=== PATIENT | male | born 1955 | race Caucasian/White ===

== ENCOUNTER 2021-01-15 10:30 | Outpatient (RCR) | payer MEDICARE | END 2021-03-04 | disposition home or self-care (01) | PROVIDERS: ATTEND Physician Assistant | DX: M54.2 Cervicalgia (principal) ==

== ENCOUNTER 2022-12-13 11:32 | Inpatient (IN) | payer MEDICARE ==
[~2022-12-13] VITALS: Ht 180.5 cm; Wt 81.6 kg
[2022-12-13 11:59] LABS: BASOPHILS % (AUTO) 0 % (0-10); EOSINOPHILS % (AUTO) 0 % (0-10); HEMATOCRIT 48 % (40-54); HEMOGLOBIN 15.9 g/dL (13.3-17.7); LYMPHOCYTES # (AUTO) 1.3 10^3/uL (1.0-4.0); LYMPHOCYTES % (AUTO) 6 % (12-44); MEAN CORPUSCULAR HEMOGLOBIN 28 pg (25-34); MEAN CORPUSCULAR HGB CONC 34 g/dL (32-36); MEAN CORPUSCULAR VOLUME 85 fL (80-99); MEAN PLATELET VOLUME 8.6 fL (9.0-12.2); MONOCYTES # (AUTO) 1.6 10^3/uL (0.0-1.0); MONOCYTES % (AUTO) 8 % (0-12); NEUTROPHILS # (AUTO) 17.8 10^3/uL (1.8-7.8); NEUTROPHILS % (AUTO) 85 % (42-75); PLATELET COUNT 211 10^3/uL (130-400); WHITE BLOOD COUNT 20.8 10^3/uL (4.3-11.0)
[2022-12-13] MEDS ORDERED: morphine INJ 10 MG/ML 1ML (SYR OR VIAL) IVP STA (12:07)
[2022-12-13] MEDS ORDERED: ONDANSETRON 4 MG/2 ML (SDV) Z0FRAN IVP ONE (12:15)
--- NOTE | 2022-12-13 12:19 | ED GI ---
General Chief Complaint: Abdominal/GI Problems Stated Complaint: ABD PAIN | CONSTIPATION Nursing Triage Note: PT AMB TO ED BY POV WITH C/O CONSTIPATION, N/V, ABD PAIN. PT REPORTS LBM 3-4 DAYS AGO. N/V BEGINNING YESTERDAY. PT REPORTS HE HAS TRIED DUCOLAX, MIRALAX, AND FLEET WITH NO SUCCESS. Source of Information: Patient Exam Limitations: No Limitations History of Present Illness Date Seen by Provider: Dec 13, 2022 Time Seen by Provider: 11:55 Initial Comments History provided by patient. Patient is a 67-year-old male who presents to the emergency department with abdominal pain since yesterday. Patient is also having constipation with his last bowel movement being 3 to 4 days ago. Patient has also been having some nausea and vomiting that began yesterday. He states the pain currently is improved from what it was yesterday and last night. Patient states he only has nausea and vomiting when he tries to eat or drink anything. He was sent to the emergency department from Dr. Chavez's office. Patient denies fever. States he has been urinating more often than normal over the past few days. Denies any pain with urination. Denies any back pain. States the pain is generalized in his abdomen and does not radiate. Denies any trauma to the abdomen recently. No history of abdominal surgeries. Patient denies taking any opioids in the recent past. Allergies and Home Medications Allergies Coded Allergies: No Known Drug Allergies (Unverified , 12/13/22) Patient Home Medication List Home Medication List Reviewed: Yes Review of Systems Review of Systems Constitutional: no symptoms reported EENTM: No Symptoms Reported Respiratory: No Symptoms Reported Cardiovascular: No Symptoms Reported Gastrointestinal: See HPI, Abdominal Pain, Constipated Genitourinary: See HPI Musculoskeletal: no symptoms reported Skin: no symptoms reported Psychiatric/Neurological: No Symptoms Reported Endocrine: No Symptoms Reported Hematologic/Lymphatic: No Symptoms Reported Past Mvyfizw-Maoidn-Wxrawp Hx Patient Social History Tobacco Use?: No Use of E-Cig and/or Vaping dev: No Substance use?: No Alcohol Use?: Yes Alcohol type: Beer Alcohol Frequency: Once in a while Pt feels they are or have been: No Immunizations Up To Date Influenza Vaccine Up-to-Date: No; Not Current First/Initial COVID19 Vaccinat: x3 Second COVID19 Vaccination Anderson: x3 Third COVID19 Vaccination Date: x3 Past Medical History Surgery/Hospitalization HX: HTN, ENLARGED PROSTATE, CARDIAC STENT Physical Exam Vital Signs Vital Signs - First Documented 12/13/22 11:39 Temp 35.1 Pulse 109 Resp 16 B/P (MAP) 97/53 (68) Pulse Ox 96 O2 Delivery Room Air Capillary Refill : Less Than 3 Seconds Height/Weight/BMI Height: '" Weight: lbs. oz. kg; 25.00 BMI Method: General Appearance: WD/WN, no apparent distress HEENT: PERRL/EOMI, normal ENT inspection, TMs normal, pharynx normal Neck: non-tender, full range of motion, supple, normal inspection Respiratory: chest non-tender, lungs clear, normal breath sounds, no respiratory distress, no accessory muscle use Cardiovascular: regular rate, rhythm, no edema, no gallop, no JVD, no murmur Gastrointestinal: normal bowel sounds, soft, tenderness Extremities: normal range of motion, non-tender, normal inspection, no pedal edema, no calf tenderness Neurologic/Psychiatric: no motor/sensory deficits, alert, normal mood/affect, oriented x 3 Skin: normal color, warm/dry Progress/Results/Core Measures Results/Orders Lab Results Laboratory Tests Test 12/13/22 11:49 12/13/22 13:30 Range/Units White Blood Count 20.8 H 4.3-11.0 10^3/uL Red Blood Count 5.62 H 4.30-5.52 10^6/uL Hemoglobin 15.9 13.3-17.7 g/dL Hematocrit 48 40-54 % Mean Corpuscular Volume 85 80-99 fL Mean Corpuscular Hemoglobin 28 25-34 pg Mean Corpuscular Hemoglobin Concent 34 32-36 g/dL Red Cell Distribution Width 14.2 10.0-14.5 % Platelet Count 211 130-400 10^3/uL Mean Platelet Volume 8.6 L 9.0-12.2 fL Immature Granulocyte % (Auto) 1 % Neutrophils (%) (Auto) 85 H 42-75 % Lymphocytes (%) (Auto) 6 L 12-44 % Monocytes (%) (Auto) 8 0-12 % Eosinophils (%) (Auto) 0 0-10 % Basophils (%) (Auto) 0 0-10 % Neutrophils # (Auto) 17.8 H 1.8-7.8 10^3/uL Lymphocytes # (Auto) 1.3 1.0-4.0 10^3/uL Monocytes # (Auto) 1.6 H 0.0-1.0 10^3/uL Eosinophils # (Auto) 0.0 0.0-0.3 10^3/uL Basophils # (Auto) 0.0 0.0-0.1 10^3/uL Immature Granulocyte # (Auto) 0.1 0.0-0.1 10^3/uL Neutrophils % (Manual) 88 % Lymphocytes % (Manual) 6 % Monocytes % (Manual) 6 % Eosinophils % (Manual) 0 % Basophils % (Manual) 0 % Band Neutrophils 0 % Blood Morphology Comment NORMAL Sodium Level 136 135-145 MMOL/L Potassium Level 4.4 3.6-5.0 MMOL/L Chloride Level 101 98-107 MMOL/L Carbon Dioxide Level 23 21-32 MMOL/L Anion Gap 12 5-14 MMOL/L Blood Urea Nitrogen 22 H 7-18 MG/DL Creatinine 1.45 H 0.60-1.30 MG/DL Estimat Glomerular Filtration Rate 52 BUN/Creatinine Ratio 15 Glucose Level 114 H 70-105 MG/DL Calcium Level 9.4 8.5-10.1 MG/DL Corrected Calcium 9.5 8.5-10.1 MG/DL Total Bilirubin 1.7 H 0.1-1.0 MG/DL Aspartate Amino Transf (AST/SGOT) 31 5-34 U/L Alanine Aminotransferase (ALT/SGPT) 35 0-55 U/L Alkaline Phosphatase 55 40-136 U/L Total Protein 7.0 6.4-8.2 GM/DL Albumin 3.9 3.2-4.5 GM/DL Urine Color YELLOW Urine Clarity CLEAR Urine pH 6.5 5-9 Urine Specific [place] <=1.005 1.016-1.022 Urine Protein TRACE H NEGATIVE Urine Glucose (UA) NEGATIVE NEGATIVE Urine Ketones NEGATIVE NEGATIVE Urine Nitrite NEGATIVE NEGATIVE Urine Bilirubin NEGATIVE NEGATIVE Urine Urobilinogen 0.2 < = 1.0 MG/DL Urine Leukocyte Esterase NEGATIVE NEGATIVE Urine RBC (Auto) NEGATIVE NEGATIVE Urine RBC RARE /HPF Urine WBC NONE /HPF Urine Squamous Epithelial Cells RARE /HPF Urine Crystals NONE /LPF Urine Bacteria NEGATIVE /HPF Urine Casts NONE /LPF Urine Mucus NEGATIVE /LPF Urine Culture Indicated NO My Orders Orders - FERNY WOOD APRN Cbc With Automated Diff (12/13/22 11:46) Comprehensive Metabolic Panel (12/13/22 11:46) Urinalysis (12/13/22 11:46) Iv/Invasive Line Insertion .IV INSERT (12/13/22 11:46) Ct Abdomen/Pelvis W (12/13/22 11:46) Manual Differential (12/13/22 11:49) Morphine Injection (Morphine Injection (12/13/22 12:07) Ondansetron Injection (Zofran Injectio (12/13/22 12:15) Iohexol Injection (Omnipaque 350 Mg/Ml 1 (12/13/22 12:45) Received Contrast (Hold Metformin- Contr (12/13/22 12:45) Ns (Ivpb) (Sodium Chloride 0.9% Ivpb Bag (12/13/22 12:45) Ns Iv 1000 Ml (Sodium Chloride 0.9%) (12/13/22 12:45) Piperacillin Sodium/Tazobactam (Zosyn Vi (12/13/22 14:00) Ed Admission (Communication) (12/13/22 13:55) Consult General Surgery (12/13/22 13:55) Medications Given in ED Current Medications Medications Dose Ordered Sig/Christy Route Start Time Stop Time Status Last Admin Dose Admin Iohexol 100 ml ONCE ONCE IV 12/13/22 12:45 12/13/22 12:46 DC 12/13/22 12:55 80 ML Ondansetron HCl 4 mg ONCE ONCE IVP 12/13/22 12:15 12/13/22 12:16 DC 12/13/22 12:26 4 MG Sodium Chloride 100 ml ONCE ONCE IV 12/13/22 12:45 12/13/22 12:46 DC 12/13/22 12:55 80 ML Vital Signs/I&O 12/13/22 12/13/22 11:39 12:26 Temp 35.1 35.1 Pulse 109 Resp 16 B/P (MAP) 97/53 (68) Pulse Ox 96 O2 Delivery Room Air Blood Pressure Mean: 68 Progress Progress Note : Progress Note Patient is nontoxic and well-hydrated on exam. Vital signs notable for mild tachycardia. They are otherwise reassuring. Patient does have diffuse tenderness to palpation in the anterior abdomen. No rigidity or distention appreciated. Patient is awake, alert, and answers all questions appropriately. Patient did receive a KUB earlier today that patient states was ordered by his PCP. My wet read reveals increased stool burden without any obvious obstructive changes. Radiology report agrees with increased stool burden without impaction or obvious obstructive changes. Orders placed for CBC, CMP, urinalysis, IV placement, and CT of the abdomen/pelvis. CT ordered for further evaluation of the abdominal pain given patient's report of the relative sudden onset as well as severity. An IV dose of morphine as well as a normal saline bolus were also ordered. CBC notable for leukocytosis. CMP largely unremarkable other than mildly elevated BUN/creatinine. Urinalysis largely unremarkable. CT of abdomen and pelvis notable for segment of distal small bowel thickening consistent with enteritis. There is also some pelvic free fluid noted. No obvious perforation or obstruction noted. I spoke with Dr. Harrison with general surgery who states that the patient would likely benefit from admission, IV antibiotics, and observation. He states that he does note a potential small area of possible obstruction on the CT scan. Patient states his pain is much improved after the dose of morphine as well as a normal saline bolus. I discussed the findings as well as the recommendation for patient to be admitted for further evaluation and treatment. He verbalized understanding of the findings and resulting concerns and agrees to admission. I spoke with Dr. Chavez who kindly agreed to admit the patient. Consults : Consulting Physician: DIONNE HARRISON DO Consults Notes Reviewed labs and CT; states patient would likely benefit from IV antibiotics, admission, and observation; states he will be happy to consult on the patient while admitted Departure Impression Primary Impression: Enteritis Additional Impression: Abdominal pain Qualified Codes: R10.84 - Generalized abdominal pain Disposition: ADMITTED INPATIENT Condition: Stable Admissions Decision to Admit Reason: Admit from ER (General) Departure-Patient Inst. Referrals: CCEILIO CHAVEZ MD (PCP/Family) Primary Care Physician FERNY WOOD APRN Dec 13, 2022 12:19
[2022-12-13 12:25] LABS: ALBUMIN 3.9 GM/DL (3.2-4.5)
[2022-12-13 12:26] LABS: POTASSIUM 4.4 MMOL/L (3.6-5.0)
[2022-12-13 12:27] LABS: CALCIUM 9.4 MG/DL (8.5-10.1)
[2022-12-13 12:28] LABS: BAND NEUTROPHILS 0 %; BASOPHILS % (MANUAL) 0 %; EOSINOPHILS % (MANUAL) 0 %; LYMPHOCYTES % (MANUAL) 6 %; MONOCYTES % (MANUAL) 6 %; NEUTROPHILS % (MANUAL) 88 %; RBC MORPH NORMAL
[2022-12-13 12:30] LABS: BILIRUBIN,TOTAL 1.7 MG/DL (0.1-1.0)
[2022-12-13 12:32] LABS: CREATININE SERUM 1.45 MG/DL (0.60-1.30)
[2022-12-13] MEDS ORDERED: IOHEXOL 350 MG/ML 100 ML (OMNIPAQUE 350) VIAL IV ONE (12:45)
[2022-12-13] MEDS ORDERED: NS 100 ML (IVPB) BAG IV ONE (12:45)
[2022-12-13] MEDS ORDERED: HOLD METFORMIN - RECEIVED CONTRAST 20 ML VIAL IV SCH (12:45)
[2022-12-13] MEDS ORDERED: NS IV 1000 ML 1,000 ML IV SCH (12:45)
--- NOTE | 2022-12-13 13:26 | Diagnostic Imaging Report ---
PROCEDURE: CT abdomen and pelvis with contrast. TECHNIQUE: Multiple contiguous axial images were obtained through the abdomen and pelvis after administration of intravenous contrast. Auto Exposure Controls were utilized during the CT exam to meet ALARA standards for radiation dose reduction. All CT scans use one or more of the following dose optimizing techniques: automated exposure control, MA and/or KvP adjustment based on patient size and exam type or iterative reconstruction. INDICATION: Pain and constipation. FINDINGS: There is stool in the colon. The fecal load may be mildly elevated but not clearly pathologic. There is no impaction. The rectal vault and sigmoid colon are unremarkable. The patient has a small to moderate volume of abdominal/pelvic free fluid without loculation. There is extensive circumferential edematous thickening of the small bowel wall at its distal one/third in the right hemiabdomen and lower quadrant extending to the terminal ileum. This is at least a 30 cm length segment. There is some congestion and edema of the associated subtending mesentery. There is no pneumatosis. There is no free air. There is no resultant bowel obstruction. The appendix itself is air-containing, nondilated, and separable from the inflammatory process. There is no appendicitis. No arterial or venous thrombus. There is very minimal scattered non-stenosing aortic atherosclerotic plaque. The liver, gallbladder, bile ducts, spleen, adrenals, and pancreas are all nonacute. The unobstructed kidneys are normal. No appreciable large bowel inflammation. IMPRESSION: 1. Nonspecific distal enteritis with regional mesenteric congestion and abdominal/pelvic free fluid. No pneumatosis or free gas and no appreciable arterial or venous obstruction. This may reflect an infectious enteritis or sequelae of inflammatory bowel disease. 2. There is stool in the colon but the colonic fecal load is not grossly pathologic and there is no fecal impaction. 3. Normal appendix. No acute hepatobiliary or urinary tract pathology. Dictated by: Dictated on workstation # [id number]
[2022-12-13 13:36] LABS: BILIRUBIN,URINE NEGATIVE (NEGATIVE); CLARITY,URINE CLEAR; COLOR,URINE YELLOW; GLUCOSE, URINE (UA) NEGATIVE (NEGATIVE); KETONES,URINE NEGATIVE (NEGATIVE); LEUKOCYTE ESTERASE ,URINE NEGATIVE (NEGATIVE); NITRITE,URINE NEGATIVE (NEGATIVE); PH,URINE 6.5 (5-9); PROTEIN,URINE TRACE (NEGATIVE)
[2022-12-13 13:54] LABS: BACTERIA,URINE NEGATIVE /HPF; RBC,URINE RARE /HPF; SQUAMOUS EPITHELIAL CELL,UR RARE /HPF
[2022-12-13] MEDS ORDERED: PIPERACILLIN SODIUM/TAZOBACTAM 4.5 GM in NS (IVPB) 100 ML IV ONE (14:00)
[2022-12-13] MEDS ORDERED: D5 NS 1000 ML IV SOLUTION 1,000 ML IV SCH (15:15)
[2022-12-13 15:22] VITALS: BP 144/76
--- NOTE | 2022-12-13 15:25 | Progress Note - Surgery ---
Objective Exam Vital Signs Date Time Temp Pulse Resp B/P (MAP) Pulse Ox O2 Delivery O2 Flow Rate FiO2 12/13/22 14:41 83 16 138/87 97 Room Air 12/13/22 12:26 35.1 12/13/22 11:39 35.1 109 16 97/53 (68) 96 Room Air Capillary Refill : Less Than 3 Seconds Results Lab Laboratory Tests 12/13/22 11:49: White Blood Count 20.8H, Red Blood Count 5.62H, Hemoglobin 15.9, Hematocrit 48, Mean Corpuscular Volume 85, Mean Corpuscular Hemoglobin 28, Mean Corpuscular Hemoglobin Concent 34, Red Cell Distribution Width 14.2, Platelet Count 211, Mean Platelet Volume 8.6L, Immature Granulocyte % (Auto) 1, Neutrophils (%) (Auto) 85H, Lymphocytes (%) (Auto) 6L, Monocytes (%) (Auto) 8, Eosinophils (%) (Auto) 0, Basophils (%) (Auto) 0, Neutrophils # (Auto) 17.8H, Lymphocytes # (Auto) 1.3, Monocytes # (Auto) 1.6H, Eosinophils # (Auto) 0.0, Basophils # (Auto) 0.0, Immature Granulocyte # (Auto) 0.1, Neutrophils % (Manual) 88, Lymphocytes % (Manual) 6, Monocytes % (Manual) 6, Eosinophils % (Manual) 0, Basophils % (Manual) 0, Band Neutrophils 0, Blood Morphology Comment NORMAL, Sodium Level 136, Potassium Level 4.4, Chloride Level 101, Carbon Dioxide Level 23, Anion Gap 12, Blood Urea Nitrogen 22H, Creatinine 1.45H, Estimat Glomerular Filtration Rate 52, BUN/Creatinine Ratio 15, Glucose Level 114H, Calcium Level 9.4, Corrected Calcium 9.5, Total Bilirubin 1.7H, Aspartate Amino Transf (AST/SGOT) 31, Alanine Aminotransferase (ALT/SGPT) 35, Alkaline Phosphatase 55, Total Protein 7.0, Albumin 3.9 12/13/22 13:30: Urine Color YELLOW, Urine Clarity CLEAR, Urine pH 6.5, Urine Specific [place] <=1.005, Urine Protein TRACEH, Urine Glucose (UA) NEGATIVE, Urine Ketones NEGATIVE, Urine Nitrite NEGATIVE, Urine Bilirubin NEGATIVE, Urine Urobilinogen 0.2, Urine Leukocyte Esterase NEGATIVE, Urine RBC (Auto) NEGATIVE, Urine RBC RARE, Urine WBC NONE, Urine Squamous Epithelial Cells RARE, Urine Crystals NONE, Urine Bacteria NEGATIVE, Urine Casts NONE, Urine Mucus NEGATIVE, Urine Culture Indicated NO ZACARIAS AKBAR Dec 13, 2022 15:25
[2022-12-13] MEDS ORDERED: MTP25TSR PO (15:27)
[2022-12-13] MEDS ORDERED: GLUC-219 PO (15:27)
[2022-12-13] MEDS ORDERED: MELA1TAB20 PO (15:27)
[2022-12-13] MEDS ORDERED: TMSL.4C PO (15:27)
[2022-12-13] MEDS ORDERED: LISI10TA25 PO (15:27)
[2022-12-13] MEDS ORDERED: FISH1CAP15 PO (15:27)
[2022-12-13] MEDS ORDERED: ATOR40TA70 PO (15:27)
[2022-12-13] MEDS ORDERED: BETH50TA3 PO (15:27)
[2022-12-13] MEDS ORDERED: CHOL20003 PO (15:27)
[2022-12-13] MEDS ORDERED: GABA300C PO (15:27)
[2022-12-13] MEDS ORDERED: ASPI-1238 PO (15:27)
--- NOTE | 2022-12-13 15:38 | Consultation - Surgery ---
ZACARIAS AKBAR 12/13/22 1538: History of Present Illness History of Present Illness Patient Consulted On(dinh/time) 12/13/22 15:32 Date Seen by Provider: Dec 13, 2022 Time Seen by Provider: 14:40 History of Present Illness Oni Contreras is a 67 yo male who presented to the emergency department with chief complaint of constipation. The patient reports he has not had a bowel movement for 4 days, which is abnormal for him, as he normally stools at least once per day. He notes that he does have diet recommendations from his PCP Dr. Chavez that help him stool more regularly, and he otherwise does occasionally deal with constipation if he does not follow her recommendations. The patient further complains of abdominal pain since he awoke yesterday; it originated in his epigastrium and has since begun radiating inferiorly and laterally, diffusely across his abdomen. He also endorses nausea and vomiting for the past 24 hours, 5 episodes total, and he has been unable to keep any fluids, solids, or medications down, including Miralax, though he was able to take 2 doses of Dulcolax. The patient denies any history of similar symptoms. He admits to decreased urine for the past 2 days, which he attributes to decreased fluid intake, but he denies any diarrhea, black or bloody stools, fever, chills, chest pain, or shortness of breath. He states he feels as though his abdomen is bloated at this time. Patient recently finished a 5 day course of Prednisone for a URI. Allergies and Home Medications Allergies Coded Allergies: No Known Drug Allergies (Unverified , 12/13/22) Patient Home Medication List Home Medication List Reviewed: Yes Aspirin (Aspirin EC) 81 Mg Tablet.dr, 81 MG PO DAILY, (Reported) Entered as Reported by: NURY CANSECO on 12/13/221526 Last Action: Reviewed Atorvastatin Calcium (Atorvastatin Calcium) 40 Mg Tablet, 40 MG PO 1700, (Reported) Entered as Reported by: NURY CANSECO on 12/13/221526 Last Action: Reviewed Bethanechol Chloride (Bethanechol Chloride) 50 Mg Tablet, 50 MG PO 1300, (Reported) Entered as Reported by: NURY CANSECO on 12/13/221526 Last Action: Reviewed Cholecalciferol (Vitamin D3) (Vitamin D3) 50 Mcg (2000 Unit) Capsule, 50 MCG PO DAILY, (Reported) Entered as Reported by: NURY CANSECO on 12/13/221526 Last Action: Reviewed Fish Oil/Dha/Epa (Fish Oil 1,200 mg Fish Oil) 1,200 Mg-144 Mg-216 Mg Capsule, 1 EACH PO BID, (Reported) Entered as Reported by: NURY CANSECO on 12/13/221526 Last Action: Reviewed Gabapentin (Neurontin) 300 Mg Capsule, 300 MG PO HS, (Reported) Entered as Reported by: NURY CANSECO on 12/13/221526 Last Action: Reviewed Glucosamine/D3/Boswellia Bhavya (Osteo Bi-Flex Tablet) 1,500 Mg-400 Unit-100 Mg Tablet, 1 EACH PO BID, (Reported) Entered as Reported by: NURY CANSECO on 12/13/221526 Last Action: Reviewed Lisinopril (Lisinopril) 10 Mg Tablet, 15 MG PO 1700, (Reported) Entered as Reported by: NURY CANSECO on 12/13/221526 Last Action: Reviewed Melatonin/Pyridoxine HCl (B6) (Melatonin 10 mg Tablet) 10 Mg-10 Mg Tab.mphase, 1-2 EACH PO HS PRN for SLEEP, (Reported) Entered as Reported by: NURY CANSECO on 12/13/221526 Last Action: Reviewed Metoprolol Succinate (Metoprolol Succinate) 25 Mg Tab.er.24h, 25 MG PO DAILY, (Reported) Entered as Reported by: NURY CANSECO on 12/13/221526 Last Action: Reviewed Tamsulosin HCl (Flomax) 0.4 Mg Cap, 0.8 MG PO 1700, (Reported) Entered as Reported by: NURY CANSECO on 12/13/221526 Last Action: Reviewed Past Ohewaxx-Eimqzg-Ztahpr Hx Patient Social History Smoking Status: Never a Smoker Alcohol Use?: Yes (1-2 beers per day) Have you traveled recently?: No Surgeries Surgeries: Coronary Stent, Orthopedic (C-spine fusion, L-spine hernia discectomy) Respiratory History of Respiratory Disorde: No Cardiovascular History of Cardiac Disorders: Yes Cardiac Disorders: Coronary Artery Disease, High Cholesterol, Hypertension Neurological History of Neurological Disord: No Genitourinary Genitourinary Disorders: Benign Prostatic Hyperpl (possible, vs neurogenic bladder), Neurogenic Bladder (possible, vs BPH) Gastrointestinal History of Gastrointestinal Di: No Musculoskeletal History of Musculoskeletal Dis: No Endocrine History of Endocrine Disorders: No HEENT History of HEENT Disorders: No Cancer History of Cancer: No Psychosocial History of Psychiatric Problem: No Integumentary History of Skin or Integumenta: No Family Medical History Significant Family History: Heart Disease, Diabetes, Renal Disease Review of Systems-General Constitutional: No chills, No fever Respiratory: No dyspnea on exertion, No short of breath Cardiovascular: No chest pain, No edema Gastrointestinal: abdominal pain (RUQ, RLQ, LLQ, periumbilical), constipation; No diarrhea, No melena; nausea, vomiting, other (distension) Genitourinary: decreased output Physical Exam-General Problems Physical Exam Vital Signs Vital Signs - First Documented 12/13/22 11:39 Temp 35.1 Pulse 109 Resp 16 B/P (MAP) 97/53 (68) Pulse Ox 96 O2 Delivery Room Air Capillary Refill : Less Than 3 Seconds General Appearance: WD/WN, no apparent distress HEENT: PERRL/EOMI Neck: non-tender, supple; No carotid bruit Respiratory: lungs clear, normal breath sounds, no respiratory distress, no accessory muscle use Cardiovascular: regular rate, rhythm, no edema, no murmur Peripheral Pulses: 2+ Dorsalis Pedis (R), 2+ Left Dors-Pedis (L), 2+ Radial Pulses (R), 2+ Radial Pulses (L) Gastrointestinal: normal bowel sounds, soft; No distended; tenderness (RUQ, RLQ, LLQ, periumbilical, worst periumbilical), hernia (small umbilical hernia) Back: no vertebral tenderness Extremities: no pedal edema, no calf tenderness Neurologic/Psychiatric: alert, normal mood/affect, oriented x 3 Skin: normal color, warm/dry Lymphatic: no adenopathy Data Review Labs Laboratory Tests 12/13/22 11:49: White Blood Count 20.8H, Red Blood Count 5.62H, Hemoglobin 15.9, Hematocrit 48, Mean Corpuscular Volume 85, Mean Corpuscular Hemoglobin 28, Mean Corpuscular Hemoglobin Concent 34, Red Cell Distribution Width 14.2, Platelet Count 211, Mean Platelet Volume 8.6L, Immature Granulocyte % (Auto) 1, Neutrophils (%) (Auto) 85H, Lymphocytes (%) (Auto) 6L, Monocytes (%) (Auto) 8, Eosinophils (%) (Auto) 0, Basophils (%) (Auto) 0, Neutrophils # (Auto) 17.8H, Lymphocytes # (Auto) 1.3, Monocytes # (Auto) 1.6H, Eosinophils # (Auto) 0.0, Basophils # (Auto) 0.0, Immature Granulocyte # (Auto) 0.1, Neutrophils % (Manual) 88, Lymphocytes % (Manual) 6, Monocytes % (Manual) 6, Eosinophils % (Manual) 0, Basophils % (Manual) 0, Band Neutrophils 0, Blood Morphology Comment NORMAL, Sodium Level 136, Potassium Level 4.4, Chloride Level 101, Carbon Dioxide Level 23, Anion Gap 12, Blood Urea Nitrogen 22H, Creatinine 1.45H, Estimat Glomerular Filtration Rate 52, BUN/Creatinine Ratio 15, Glucose Level 114H, Calcium Level 9.4, Corrected Calcium 9.5, Total Bilirubin 1.7H, Aspartate Amino Transf (AST/SGOT) 31, Alanine Aminotransferase (ALT/SGPT) 35, Alkaline Phosphatase 55, Total Protein 7.0, Albumin 3.9 12/13/22 13:30: Urine Color YELLOW, Urine Clarity CLEAR, Urine pH 6.5, Urine Specific Aston <=1.005, Urine Protein TRACEH, Urine Glucose (UA) NEGATIVE, Urine Ketones NEGATIVE, Urine Nitrite NEGATIVE, Urine Bilirubin NEGATIVE, Urine Urobilinogen 0.2, Urine Leukocyte Esterase NEGATIVE, Urine RBC (Auto) NEGATIVE, Urine RBC RARE, Urine WBC NONE, Urine Squamous Epithelial Cells RARE, Urine Crystals NONE, Urine Bacteria NEGATIVE, Urine Casts NONE, Urine Mucus NEGATIVE, Urine Culture Indicated NO Radiology Date of Exam:12/13/22 CT ABDOMEN/PELVIS W FINDINGS: There is stool in the colon. The fecal load may be mildly elevated but not clearly pathologic. There is no impaction. The rectal vault and sigmoid colon are unremarkable. The patient has a small to moderate volume of abdominal/pelvic free fluid without loculation. There is extensive circumferential edematous thickening of the small bowel wall at its distal one/third in the right hemiabdomen and lower quadrant extending to the terminal ileum. This is at least a 30 cm length segment. There is some congestion and edema of the associated subtending mesentery. There is no pneumatosis. There is no free air. There is no resultant bowel obstruction. The appendix itself is air-containing, nondilated, and separable from the inflammatory process. There is no appendicitis. No arterial or venous thrombus. There is very minimal scattered non-stenosing aortic atherosclerotic plaque. The liver, gallbladder, bile ducts, spleen, adrenals, and pancreas are all nonacute. The unobstructed kidneys are normal. No appreciable large bowel inflammation. IMPRESSION: 1. Nonspecific distal enteritis with regional mesenteric congestion and abdominal/pelvic free fluid. No pneumatosis or free gas and no appreciable arterial or venous obstruction. This may reflect an infectious enteritis or sequelae of inflammatory bowel disease. 2. There is stool in the colon but the colonic fecal load is not grossly pathologic and there is no fecal impaction. 3. Normal appendix. No acute hepatobiliary or urinary tract pathology. Assessment/Plan Assessment/Plan Assessment/Plan 1. Possible partial small bowel obstruction on CT 2. Enteritis 3. Free fluid in the abdomen 4. Leukocytosis - 20.8 on 12/[address] reading showed no obstruction but upon discussion with Dr. Ozuna of radiology, patient has a possible transition point and obstruction in the small bowel. Patient also has enteritis and free fluid on CT. Initiate patient on IV fluids and bowel rest. Consider NG decompression. Continue analgesic regimen. Continue monitoring patient's bowel movements, symptoms, and labs. DIONNE HARRISON DO 12/13/22 1724: History of Present Illness History of Present Illness Time Seen by Provider: 16:39 History of Present Illness Surgery asked to consult regarding abdominal pain. HPI per ED: Patient is a 67-year-old male who presents to the emergency department with abdominal pain since yesterday. Patient is also having constipation with his last bowel movement being 3 to 4 days ago. Patient has also been having some nausea and vomiting that began yesterday. He states the pain currently is improved from what it was yesterday and last night. Patient states he only has nausea and vomiting when he tries to eat or drink anything. He was sent to the emergency department from Dr. Chavez's office. Patient denies fever. States he has been urinating more often than normal over the past few days. Denies any pain with urination. Denies any back pain. States the pain is generalized in his abdomen and does not radiate. Denies any trauma to the abdomen recently. No history of abdominal surgeries. Patient denies taking any opioids in the recent past. When I spoke to pt he stated pain was well controlled with the Morphine. He would like something to drink, but did state that everything he has been trying "has come right back up." He states he has never had pain like this before, never this bad and really never had abdominal pain. He states that he had had "the flu for 3 weeks and finally was given some steroids to take this past week." He thinks it is "constipation" causing his problems. Allergies and Home Medications Allergies Coded Allergies: No Known Drug Allergies (Unverified , 12/13/22) Patient Home Medication List Home Medication List Reviewed: Yes Aspirin (Aspirin EC) 81 Mg Tablet.dr, 81 MG PO DAILY, (Reported) Entered as Reported by: NURY CANSECO on 12/13/221526 Last Action: Reviewed Atorvastatin Calcium (Atorvastatin Calcium) 40 Mg Tablet, 40 MG PO 1700, (Reported) Entered as Reported by: NURY CANSECO on 12/13/221526 Last Action: Reviewed Bethanechol Chloride (Bethanechol Chloride) 50 Mg Tablet, 50 MG PO 1300, (Reported) Entered as Reported by: NURY CANSECO on 12/13/221526 Last Action: Reviewed Cholecalciferol (Vitamin D3) (Vitamin D3) 50 Mcg (2000 Unit) Capsule, 50 MCG PO DAILY, (Reported) Entered as Reported by: NURY CANSECO on 12/13/221526 Last Action: Reviewed Fish Oil/Dha/Epa (Fish Oil 1,200 mg Fish Oil) 1,200 Mg-144 Mg-216 Mg Capsule, 1 EACH PO BID, (Reported) Entered as Reported by: NURY CANSECO on 12/13/221526 Last Action: Reviewed Gabapentin (Neurontin) 300 Mg Capsule, 300 MG PO HS, (Reported) Entered as Reported by: NURY CANSECO on 12/13/221526 Last Action: Reviewed Glucosamine/D3/Boswellia Bhavya (Osteo Bi-Flex Tablet) 1,500 Mg-400 Unit-100 Mg Tablet, 1 EACH PO BID, (Reported) Entered as Reported by: NURY CANSECO on 12/13/221526 Last Action: Reviewed Lisinopril (Lisinopril) 10 Mg Tablet, 15 MG PO 1700, (Reported) Entered as Reported by: NURY CANSECO on 12/13/221526 Last Action: Reviewed Melatonin/Pyridoxine HCl (B6) (Melatonin 10 mg Tablet) 10 Mg-10 Mg Tab.mphase, 1-2 EACH PO HS PRN for SLEEP, (Reported) Entered as Reported by: NURY CANSECO on 12/13/221526 Last Action: Reviewed Metoprolol Succinate (Metoprolol Succinate) 25 Mg Tab.er.24h, 25 MG PO DAILY, (Reported) Entered as Reported by: NURY CANSECO on 12/13/221526 Last Action: Reviewed Tamsulosin HCl (Flomax) 0.4 Mg Cap, 0.8 MG PO 1700, (Reported) Entered as Reported by: NURY CANSECO on 12/13/221526 Last Action: Reviewed Past Nsjlghv-Lyeszk-Kqujvp Hx Patient Social History Smoking Status: Never a Smoker Alcohol Use?: Yes (1-2 beers per day) Surgeries History of Surgeries: Yes Surgeries: Coronary Stent, Orthopedic (C-spine fusion, L-spine hernia discectomy) Respiratory History of Respiratory Disorde: No Cardiovascular History of Cardiac Disorders: Yes Cardiac Disorders: Coronary Artery Disease, High Cholesterol, Hypertension Neurological History of Neurological Disord: No Genitourinary History of Genitourinary Disor: Yes Genitourinary Disorders: Benign Prostatic Hyperpl (possible, vs neurogenic bladder), Neurogenic Bladder (possible, vs BPH) Gastrointestinal History of Gastrointestinal Di: No Musculoskeletal History of Musculoskeletal Dis: No Endocrine History of Endocrine Disorders: No HEENT History of HEENT Disorders: No Loss of Vision: Denies Hearing Impairment: Denies Cancer History of Cancer: No Psychosocial History of Psychiatric Problem: No Integumentary History of Skin or Integumenta: No Family Medical History Significant Family History: Heart Disease, Diabetes, Renal Disease Review of Systems-General Constitutional: No chills, No fever; malaise EENTM: No blurred vision, No double vision, No mouth swelling, No epistaxis Respiratory: No dyspnea on exertion, No short of breath Cardiovascular: No chest pain, No edema Gastrointestinal: abdominal pain (RUQ, RLQ, LLQ, periumbilical), constipation; No diarrhea, No melena; nausea, vomiting, other (distension) Genitourinary: decreased output; No dysuria, No hematuria Musculoskeletal: back pain, joint pain, joint swelling, muscle stiffness Skin: No change in color, No change in hair/nails Psychiatric/Neurological: Denies Anxiety, Denies Depressed, Denies Seizure, Denies Tingling Physical Exam-General Problems Physical Exam General Appearance: WD/WN, no apparent distress Eyes: Bilateral Eye PERRL, Bilateral Eye EOMI HEENT: pharynx normal; No scleral icterus (R), No scleral icterus (L) Neck: non-tender, supple Respiratory: lungs clear, normal breath sounds, no respiratory distress, no accessory muscle use Cardiovascular: regular rate, rhythm, no edema, no murmur Gastrointestinal: normal bowel sounds, soft; No distended; tenderness (RUQ, RLQ, LLQ, periumbilical, worst periumbilical), hernia (small umbilical hernia) Rectal: deferred Back: no CVA tenderness, no vertebral tenderness Extremities: no pedal edema, no calf tenderness Neurologic/Psychiatric: alert, normal mood/affect, oriented x 3 Skin: normal color, warm/dry Lymphatic: no adenopathy (neck, axilla or groin) Assessment/Plan Assessment/Plan Assessment/Plan 1. PSBO 2. Enteritis 3. Free fluid in the abdomen 4. Leukocytosis - 20.8 on 12/[address] reading showed no obstruction; however, I looked myself and the spoke with Dr. Ozuna of radiology and I saw an area that looked like a t ransition point. Dr. Ozuna agreed with me; I think the transition point is right near the inflamed, edemaous (enteritis) small bowel. Patient also has free fluid on CT, but no free air. It is too much fluid to just be physiologic. He appears to be very comfortable in bed (he did get some morphine) so there is nothing indicating the need to go to surgery right away. I also discussed the pt with the ED provider. The plan is IV fluids (I increased to 150ml of LR per hour), bowel rest but ice chips ok, pain control and anti- emetics as needed. I don't think he needs NG decompression at this time. Will recheck labs in the am and repeat abdominal exam. It is possible he will need a diagnostic laparoscopy if he gets worse and I told him this. Supervisory-Addendum Brief Verification & Attestation Participated in pt care: history, MDM, physical Personally performed: exam, history, MDM, supervision of care Care discussed with: Medical Student Procedures: n/a Verification and Attestation of Medical Student E/M Service A medical student performed and documented this service. I then reviewed and verified all information documented by the medical student and made modifications to such information, when appropriate. I personally performed a physical exam, medical decision making and then discussed any differences between the notes and made revisions as necessary to create one note. Dionne Harrison , 12/13/22 , 17:30 ZACARIAS AKBRA Dec 13, 2022 15:38 DIONNE HARRISON DO Dec 13, 2022 17:24
[2022-12-13] MEDS: LACTATED RINGERS 1,000 ML IV SCH (16:53)
[2022-12-13] MEDS: morphine INJ 4 MG/ML 1 ML (VIAL/SYRINGE) IV PRN ×2 (17:09→21:21)
[2022-12-13 19:37] VITALS: BP 138/84
[2022-12-13] MEDS: hydrALAZINE (APESOLINE) 20 MG/ML VIAL IV SCH (20:01)
[2022-12-13] MEDS: PIPERACILLIN SODIUM/TAZOBACTAM 4.5 GM in NS (IVPB) 100 ML IV SCH (20:01)
[2022-12-13 23:19] VITALS: BP 105/62
[2022-12-14] VITALS (7 sets, daily range): BP systolic 120–145; BP diastolic 67–74
[2022-12-14] MEDS: LACTATED RINGERS 1,000 ML IV SCH ×3 (01:30→12:58)
[2022-12-14] MEDS: morphine INJ 4 MG/ML 1 ML (VIAL/SYRINGE) IV PRN ×5 (03:37→21:59)
[2022-12-14] MEDS: PIPERACILLIN SODIUM/TAZOBACTAM 4.5 GM in NS (IVPB) 100 ML IV SCH ×3 (04:25→20:41)
[2022-12-14 05:58] LABS: BASOPHILS % (AUTO) 0 % (0-10); EOSINOPHILS % (AUTO) 0 % (0-10); HEMATOCRIT 40 % (40-54); HEMOGLOBIN 13.4 g/dL (13.3-17.7); LYMPHOCYTES # (AUTO) 1.5 10^3/uL (1.0-4.0); LYMPHOCYTES % (AUTO) 13 % (12-44); MEAN CORPUSCULAR HEMOGLOBIN 29 pg (25-34); MEAN CORPUSCULAR HGB CONC 34 g/dL (32-36); MEAN CORPUSCULAR VOLUME 85 fL (80-99); MEAN PLATELET VOLUME 8.9 fL (9.0-12.2); MONOCYTES # (AUTO) 1.1 10^3/uL (0.0-1.0); MONOCYTES % (AUTO) 10 % (0-12); NEUTROPHILS # (AUTO) 8.9 10^3/uL (1.8-7.8); NEUTROPHILS % (AUTO) 77 % (42-75); PLATELET COUNT 145 10^3/uL (130-400); WHITE BLOOD COUNT 11.5 10^3/uL (4.3-11.0)
[2022-12-14 06:44] LABS: CALCIUM 8.3 MG/DL (8.5-10.1); CREATININE SERUM 0.95 MG/DL (0.60-1.30); POTASSIUM 3.9 MMOL/L (3.6-5.0)
--- NOTE | 2022-12-14 07:10 | Progress Note - Surgery ---
ZACARIAS AKBAR 12/14/22 0709: Subjective Date Seen by a Provider: Dec 14, 2022 Time Seen by a Provider: 06:45 Subjective/Events-last exam The patient is lying in bed awake at the time of my evaluation. He reports his pain is worsened from a 5/10 yesterday to a 6/10 at this time, and there were multiple brief episodes of 7-8/10 pain throughout the night. He indicates the pain is same in quality and in the same region, though radiates slightly more superiorly at this time. He further endorses an increased sensation of abdominal bloating. He states he has not had a BM still, though he passed gas twice overnight; he had not passed gas for around 4 days prior to arrival to the [facility]. The patient denies any nausea or vomiting, and his symptoms were not worsened with ice chips. He does admit to 1-2 5 minute episodes of chills over night with spontaneous onset and resolution. The patient denies any chest pain, shortness of breath, or difficulty urinating. Review of Systems General: Chills Pulmonary: No Dyspnea Cardiovascular: No: Chest Pain Gastrointestinal: Nausea (none since arrival), Vomiting (none since arrival), Abdominal Pain, Constipation Genitourinary: No Retention Musculoskeletal: No: leg pain Objective Exam Vital Signs Date Time Temp Pulse Resp B/P (MAP) Pulse Ox O2 Delivery O2 Flow Rate FiO2 12/14/22 03:20 36.7 88 18 121/71 (88) 93 Room Air 12/13/22 23:19 36.8 85 18 105/62 (76) 95 Room Air 12/13/22 20:09 Room Air 12/13/22 19:37 37.0 77 18 138/84 (102) 97 Room Air 12/13/22 17:14 Room Air 12/13/22 15:22 36.7 76 18 144/76 (98) 98 Room Air 12/13/22 14:41 83 16 138/87 97 Room Air 12/13/22 12:26 35.1 12/13/22 11:39 35.1 109 16 97/53 (68) 96 Room Air I & O 12/14/22 07:00 Intake Total 0 ml Output Total 600 ml Balance -600 ml Capillary Refill : Less Than 3 Seconds General Appearance: No Apparent Distress, WD/WN HEENT: PERRL/EOMI Neck: Non Tender, Supple Respiratory: Lungs Clear, Normal Breath Sounds, No Accessory Muscle Use, No Respiratory Distress Cardiovascular: Regular Rate, Rhythm, No Edema, No Murmur Peripheral Pulses: 2+ Dorsalis Pedis (R), 2+ Left Dors-Pedis (L), 2+ Radial Pulses (R), 2+ Radial Pulses (L) Gastrointestinal: normal bowel sounds, soft, distended (mild); No guarding; tenderness (RUQ, RLQ, LLQ, periumbilical, worst periumbilical), hernia (small umbilical hernia), other (tympanic on percussion) Extremity: No Calf Tenderness, No Pedal Edema Neurologic/Psychiatric: Alert, Oriented x3 Skin: Normal Color, Warm/Dry Results Lab Laboratory Tests 12/13/22 11:49: White Blood Count 20.8H, Red Blood Count 5.62H, Hemoglobin 15.9, Hematocrit 48, Mean Corpuscular Volume 85, Mean Corpuscular Hemoglobin 28, Mean Corpuscular Hemoglobin Concent 34, Red Cell Distribution Width 14.2, Platelet Count 211, Mean Platelet Volume 8.6L, Immature Granulocyte % (Auto) 1, Neutrophils (%) (Auto) 85H, Lymphocytes (%) (Auto) 6L, Monocytes (%) (Auto) 8, Eosinophils (%) (Auto) 0, Basophils (%) (Auto) 0, Neutrophils # (Auto) 17.8H, Lymphocytes # (Auto) 1.3, Monocytes # (Auto) 1.6H, Eosinophils # (Auto) 0.0, Basophils # (Auto) 0.0, Immature Granulocyte # (Auto) 0.1, Neutrophils % (Manual) 88, Lymphocytes % (Manual) 6, Monocytes % (Manual) 6, Eosinophils % (Manual) 0, Basophils % (Manual) 0, Band Neutrophils 0, Blood Morphology Comment NORMAL, Sodium Level 136, Potassium Level 4.4, Chloride Level 101, Carbon Dioxide Level 23, Anion Gap 12, Blood Urea Nitrogen 22H, Creatinine 1.45H, Estimat Glomerular Filtration Rate 52, BUN/Creatinine Ratio 15, Glucose Level 114H, Calcium Level 9.4, Corrected Calcium 9.5, Total Bilirubin 1.7H, Aspartate Amino Transf (AST/SGOT) 31, Alanine Aminotransferase (ALT/SGPT) 35, Alkaline Phosphatase 55, Total Protein 7.0, Albumin 3.9 12/13/22 13:30: Urine Color YELLOW, Urine Clarity CLEAR, Urine pH 6.5, Urine Specific [place] <=1.005, Urine Protein TRACEH, Urine Glucose (UA) NEGATIVE, Urine Ketones NEGATIVE, Urine Nitrite NEGATIVE, Urine Bilirubin NEGATIVE, Urine Urobilinogen 0.2, Urine Leukocyte Esterase NEGATIVE, Urine RBC (Auto) NEGATIVE, Urine RBC RARE, Urine WBC NONE, Urine Squamous Epithelial Cells RARE, Urine Crystals NONE, Urine Bacteria NEGATIVE, Urine Casts NONE, Urine Mucus NEGATIVE, Urine Culture Indicated NO 12/14/22 05:49: White Blood Count 11.5H, Red Blood Count 4.69, Hemoglobin 13.4, Hematocrit 40, Mean Corpuscular Volume 85, Mean Corpuscular Hemoglobin 29, Mean Corpuscular Hemoglobin Concent 34, Red Cell Distribution Width 14.5, Platelet Count 145, Mean Platelet Volume 8.9L, Immature Granulocyte % (Auto) 0, Neutrophils (%) (Auto) 77H, Lymphocytes (%) (Auto) 13, Monocytes (%) (Auto) 10, Eosinophils (%) (Auto) 0, Basophils (%) (Auto) 0, Neutrophils # (Auto) 8.9H, Lymphocytes # (Auto) 1.5, Monocytes # (Auto) 1.1H, Eosinophils # (Auto) 0.0, Basophils # (Auto) 0.0, Immature Granulocyte # (Auto) 0.0, Sodium Level 137, Potassium Level 3.9, Chloride Level 105, Carbon Dioxide Level 24, Anion Gap 8, Blood Urea Nitrogen 23H, Creatinine 0.95, Estimat Glomerular Filtration Rate 87, BUN/Creatinine Ratio 24, Glucose Level 89, Calcium Level 8.3L Assessment/Plan Assessment/Plan Assessment/Plan 1. PSBO 2. Enteritis 3. Free fluid in the abdomen 4. Leukocytosis - improved. 20.8 on 12/13, 11.5 on 12/14 The patient, despite passing gas last night, has notable distension on exam today with increased pain and bloating sensation. Continue IV fluids and bowel rest. Continue monitoring patient's symptoms and labs; consider NG tube placement at this time. If patient's symptoms continue to worsen, consider diagnostic laparoscopy. HORACIO ANGELES DO 12/14/22 0953: Subjective Time Seen by a Provider: 09:37 Subjective/Events-last exam Pt seen and examined, states pain is worse today but controlled with meds. He also thinks he may be more distended. Review of Systems General: Chills Pulmonary: No Dyspnea Cardiovascular: No: Chest Pain Gastrointestinal: Nausea (none since arrival), Vomiting (none since arrival), Abdominal Pain, Constipation Objective Exam General Appearance: No Apparent Distress, WD/WN HEENT: PERRL/EOMI Respiratory: Lungs Clear, Normal Breath Sounds, No Accessory Muscle Use, No Respiratory Distress Cardiovascular: Regular Rate, Rhythm Gastrointestinal: soft, distended (mild); No guarding; tenderness (RUQ, RLQ, LLQ, periumbilical, worst periumbilical), hernia (small umbilical hernia), other (tympanic on percussion) Neurologic/Psychiatric: Alert, Oriented x3 Skin: Normal Color, Warm/Dry Assessment/Plan Assessment/Plan Assessment/Plan 1. PSBO - not better 2. Enteritis 3. Free fluid in the abdomen 4. Leukocytosis - improved. 20.8 on 12/13, 11.5 on 12/14 The patient, despite passing gas last night, has mild distension on exam today with increased pain and bloating sensation. Continue IV fluids and make full NPO, no ice chips. Will order SBFT. Supervisory-Addendum Brief Verification & Attestation Participated in pt care: history, MDM, physical Personally performed: exam, history, MDM, supervision of care Care discussed with: Medical Student Procedures: n/a Verification and Attestation of Medical Student E/M Service A medical student performed and documented this service. I then reviewed and verified all information documented by the medical student and made modifications to such information, when appropriate. I personally performed a physical exam, medical decision making and then discussed any differences between the notes and made revisions as necessary to create one note. Horacio Angeles , 12/14/22 , 09:53 ZACARIAS AKBAR Dec 14, 2022 07:09 HORACIO ANGELES DO Dec 14, 2022 09:53
--- NOTE | 2022-12-14 07:28 | History & Physical ---
EDWIGE DODGE 12/14/22 0728: History of Present Illness History of Present Illness Reason for visit/HPI Mr. Contreras is well known patient to Dr. Chavez with PMH of CAD, HLD, HTN, and BPH who presented to the ER with complaints of nausea, vomiting, constipation, and abdominal pain that started about 4 days ago. He reported not being able to have a BM for the last [address] from the ER showed enteritis, partial SBO, and free fluid in the abdomen. He also reported completing a Prednisone course recently for URI. Today he states that his abdominal pain has become worse. He rates it at 7/10 and diffuse. He also reports that he is feeling more bloated. He states that he has started to pass some gas and is not feeling nauseous anymore. Date of Admission Dec 13, 2022 at 14:26 Date Seen by a Provider: Dec 14, 2022 Time Seen by a Provider: 07:33 I consulted on this patient on 12/14/22 07:22 Attending Physician Cecilio Chavez MD Admitting Physician Admitting Physician: Cecilio Chavez MD Attending Physician: Cecilio Chavez MD Consult DIONNE CALDERON DO Allergies and Home Medications Allergies Coded Allergies: No Known Drug Allergies (Unverified , 12/13/22) Patient Home Medication List Home Medication List Reviewed: Yes Aspirin (Aspirin EC) 81 Mg Tablet.dr, 81 MG PO DAILY, (Reported) Entered as Reported by: NURY CANSECO on 12/13/221526 Last Action: Held Atorvastatin Calcium (Atorvastatin Calcium) 40 Mg Tablet, 40 MG PO 1700, (Reported) Entered as Reported by: NURY CANSECO on 12/13/221526 Last Action: Held Bethanechol Chloride (Bethanechol Chloride) 50 Mg Tablet, 50 MG PO 1300, (Reported) Entered as Reported by: NURY CANSECO on 12/13/221526 Last Action: Reviewed Cholecalciferol (Vitamin D3) (Vitamin D3) 50 Mcg (2000 Unit) Capsule, 50 MCG PO DAILY, (Reported) Entered as Reported by: NURY CANSECO on 12/13/221526 Last Action: Held Fish Oil/Dha/Epa (Fish Oil 1,200 mg Fish Oil) 1,200 Mg-144 Mg-216 Mg Capsule, 1 EACH PO BID, (Reported) Entered as Reported by: NURY CANSECO on 12/13/221526 Last Action: Held Gabapentin (Neurontin) 300 Mg Capsule, 300 MG PO HS, (Reported) Entered as Reported by: NURY CANSECO on 12/13/221526 Last Action: Held Glucosamine/D3/Boswellia Bhavya (Osteo Bi-Flex Tablet) 1,500 Mg-400 Unit-100 Mg Tablet, 1 EACH PO BID, (Reported) Entered as Reported by: NURY CANSECO on 12/13/221526 Last Action: Held Lisinopril (Lisinopril) 10 Mg Tablet, 15 MG PO 1700, (Reported) Entered as Reported by: NURY CANSECO on 12/13/221526 Last Action: Reviewed Melatonin/Pyridoxine HCl (B6) (Melatonin 10 mg Tablet) 10 Mg-10 Mg Tab.mphase, 1-2 EACH PO HS PRN for SLEEP, (Reported) Entered as Reported by: NURY CANSECO on 12/13/221526 Last Action: Held Metoprolol Succinate (Metoprolol Succinate) 25 Mg Tab.er.24h, 25 MG PO DAILY, (Reported) Entered as Reported by: NURY CANSECO on 12/13/221526 Last Action: Held Tamsulosin HCl (Flomax) 0.4 Mg Cap, 0.8 MG PO 1700, (Reported) Entered as Reported by: NURY CANSECO on 12/13/221526 Last Action: Held Past Ipfatfo-Xwicbq-Idqqer Hx Patient Social History Tobacco Use?: No Smoking Status: Never a Smoker Smokeless Tobacco Frequency: Never a User Use of E-Cig and/or Vaping dev: No Use of E-Cig and/or Vaping Nas: Never a User Substance use?: No Alcohol Use?: Yes (1-2 beers per day) Alcohol type: Beer Alcohol Frequency: Once in a while Pt feels they are or have been: No Immunizations Up To Date First/Initial COVID19 Vaccinat: x3 Second COVID19 Vaccination Anderson: x3 Tetanus Booster (TDap): More Than 5 Years Current Status Advance Directives: Yes Advance Directive Location: Home Communicates: Verbally Primary Language: Slovak Preferred Spoken Language: Slovak Is interpretation needed?: No Sensory deficits: Vision impairment Implanted or Applied Medical D: Stents Past Medical History Surgeries: Coronary Stent, Orthopedic (C-spine fusion, L-spine hernia disce ctomy) Coronary Artery Disease, High Cholesterol, Hypertension Benign Prostatic Hyperpl (possible, vs neurogenic bladder), Neurogenic Bladder (possible, vs BPH) Loss of Vision: Denies Hearing Impairment: Denies Family Medical History Heart Disease, Diabetes, Renal Disease Review of Systems Respiratory: No cough, No dyspnea on exertion Cardiovascular: No chest pain, No palpitations Gastrointestinal: abdominal pain, constipation Genitourinary: No dysuria; frequency Physical Exam Vital Signs Vital Signs - First Documented 12/13/22 11:39 Temp 35.1 Pulse 109 Resp 16 B/P (MAP) 97/53 (68) Pulse Ox 96 O2 Delivery Room Air Capillary Refill : Less Than 3 Seconds Height, Weight, BMI Height: '" Weight: lbs. oz. kg; 25.04 BMI Method: General Appearance: WD/WN, Mild Distress HEENT: Moist Mucous Membranes Neck: Full Range of Motion, Normal Inspection Respiratory: Chest Non Tender, Lungs Clear, Normal Breath Sounds, No Accessory Muscle Use, No Respiratory Distress Cardiovascular: Regular Rate, Rhythm, No Edema, No Murmur Gastrointestinal: Abnormal Bowel Sounds (hyperactive in all 4 quadrants), Distended, Tenderness (diffuse) Extremity: Non Tender, No Calf Tenderness Neurologic/Psychiatric: Alert, Oriented x3, No Motor/Sensory Deficits Skin: Normal Color, Warm/Dry Lymphatic: No Adenopathy Assessment/Plan Assessment and Plan Partial Small Bowel Obstruction Surgery Consulted IVF Bowel Rest Pain Control - Morphine q 4 hours- consider increasing frequency Anti-emetics - Zofran If there is no improvement, surgery will consider NG decompression or diagnostic lap. Enteritis Zosyn (last dose 12/18) Leukocytosis improved from 20.8 yesterday to 11.5 today likely due to recent steroid use Admission Diagnosis Admission Status: Inpatient Order (span 2 midnights) CECILIO CHAVEZ MD 12/14/22 8599: History of Present Illness History of Present Illness Reason for visit/HPI Pt is a 67 y/o male who is a patient of my practice. He was admitted to the hospital after having an outpatient KUB which prompted an ER visit for severe abdominal pain. He was found to have a partial small bowel obstruction on ER imaging. The pt reports that Monday he woke up with abdominal pain - pushed thru the pain due to an eye appt, and had progressive pain throughout the day on Monday into Monday when he finally presented to the ER. He states that his stomach is still painful, he is passing gas, but has only been chewing ice-chips. Date of Admission Dec 13 Date Seen by a Provider: Dec 14, 2022 Time Seen by a Provider: 09:00 Attending Physician CECILIO CHAVEZ MD Admitting Physician DIONICIO Consult dionne calderon Allergies and Home Medications Allergies Coded Allergies: No Known Drug Allergies (Unverified , 12/13/22) Patient Home Medication List Home Medication List Reviewed: Yes Aspirin (Aspirin EC) 81 Mg Tablet.dr, 81 MG PO DAILY, (Reported) Entered as Reported by: NURY CANSECO on 12/13/221526 Last Action: Held Atorvastatin Calcium (Atorvastatin Calcium) 40 Mg Tablet, 40 MG PO 1700, (Reported) Entered as Reported by: NURY CANSECO on 12/13/221526 Last Action: Held Bethanechol Chloride (Bethanechol Chloride) 50 Mg Tablet, 50 MG PO 1300, (R eported) Entered as Reported by: NURY CANSECO on 12/13/221526 Last Action: Reviewed Cholecalciferol (Vitamin D3) (Vitamin D3) 50 Mcg (2000 Unit) Capsule, 50 MCG PO DAILY, (Reported) Entered as Reported by: NURY CANSECO on 12/13/221526 Last Action: Held Fish Oil/Dha/Epa (Fish Oil 1,200 mg Fish Oil) 1,200 Mg-144 Mg-216 Mg Capsule, 1 EACH PO BID, (Reported) Entered as Reported by: NURY CANSECO on 12/13/221526 Last Action: Held Gabapentin (Neurontin) 300 Mg Capsule, 300 MG PO HS, (Reported) Entered as Reported by: NURY CANSECO on 12/13/221526 Last Action: Held Glucosamine/D3/Boswellia Bhavya (Osteo Bi-Flex Tablet) 1,500 Mg-400 Unit-100 Mg Tablet, 1 EACH PO BID, (Reported) Entered as Reported by: NURY CANSECO on 12/13/221526 Last Action: Held Lisinopril (Lisinopril) 10 Mg Tablet, 15 MG PO 1700, (Reported) Entered as Reported by: NURY CANSECO on 12/13/221526 Last Action: Reviewed Melatonin/Pyridoxine HCl (B6) (Melatonin 10 mg Tablet) 10 Mg-10 Mg Tab.mphase, 1-2 EACH PO HS PRN for SLEEP, (Reported) Entered as Reported by: NURY CANSECO on 12/13/221526 Last Action: Held Metoprolol Succinate (Metoprolol Succinate) 25 Mg Tab.er.24h, 25 MG PO DAILY, (Reported) Entered as Reported by: NURY CANSECO on 12/13/221526 Last Action: Held Tamsulosin HCl (Flomax) 0.4 Mg Cap, 0.8 MG PO 1700, (Reported) Entered as Reported by: NURY CANSECO on 12/13/221526 Last Action: Held Past Zeoabxw-Rsibtp-Rcuzsd Hx Patient Social History Marrital Status: Living Status: lives at home with spouse Employed/Student: retired Tobacco Use?: No Smoking Status: Never a Smoker Use of E-Cig and/or Vaping dev: No Substance use?: No Alcohol Frequency: Rarely Current Status Implanted or Applied Medical D: None Past Medical History Surgeries: Cardiac, Neurological, Orthopedic Currently Using CPAP: No Currently Using BIPAP: No High Cholesterol, Hypertension Sexually Transmitted Disease: No HIV/AIDS: No Benign Prostatic Hyperpl, Neurogenic Bladder Arthritis Are Your Blood Sugars Over 250: No Loss of Vision: Denies Blood Disorders: No Adverse Reaction/Blood Tranf: No Coronary Stent, Orthopedic (C-spine fusion, L-spine hernia discectomy) Family Medical History Reviewed and Corrections made Heart Disease, Hypertension Review of Systems Constitutional: No chills, No fever, No malaise; weakness EENTM: No hoarseness, No throat pain Respiratory: No cough, No dyspnea on exertion, No short of breath Cardiovascular: No chest pain, No palpitations Gastrointestinal: abdominal pain, constipation; No loss of appetite, No nausea, No vomiting Genitourinary: No dysuria; frequency; No nocturia Musculoskeletal: no symptoms reported Skin: no symptoms reported Psychiatric/Neurological: Denies Anxiety, Denies Emotional Problems; Pre- Existing Deficit All Other Systems Reviewed Negative Unless Noted: Yes Physical Exam General Appearance: WD/WN, Mild Distress HEENT: Pharynx Normal Neck: Full Range of Motion, Normal Inspection, Supple Respiratory: Chest Non Tender, Lungs Clear, Normal Breath Sounds, No Accessory Muscle Use, No Respiratory Distress Cardiovascular: Regular Rate, Rhythm Gastrointestinal: Abnormal Bowel Sounds (hyperactive in all 4 quadrants), Distended, Tenderness (diffuse) Extremity: Normal Capillary Refill, Non Tender, No Calf Tenderness Neurologic/Psychiatric: Alert, Oriented x3, No Motor/Sensory Deficits, Normal Mood/Affect Skin: Normal Color, Warm/Dry Assessment/Plan Assessment and Plan Partial small bowel obstruction Enteritis Leukocytosis Chronic Hypertension Chronic back pain with peripheral neuropathy symptoms Partial small bowel obstruction with Enteritis and Leukocytosis -pt admitted to hospital - on IV fluids - bowel rest with ice chips - IV antibioticx - zosyn - monitor output - pt's white count improved on zosyn and bowel rest. Chronic Hypertension - pt NPI - added hydralazine IV Chronic back pain with peripheral neuropathy symptoms .DVT prophylsaxis wtih scd's and lovenox gi prophylasis with ppi Admission Diagnosis Partial small bowel obstruction Enteritis Leukocytosis Chronic Hypertension Chronic back pain with peripheral neuropathy symptoms Admission Status: Inpatient Order (span 2 midnights) Reason for Inpatient Admission: inpt admission for partial small bowel obstruction, will require at least 2-3 days in the hospital for stabilization and treatment Supervisory-Addendum Brief Verification & Attestation Participated in pt care: history, MDM, physical Personally performed: exam, history, MDM, supervision of care Care discussed with: Medical Student Procedures: n/a Results interpretation: Verified all documentation SEE MY DOCUMENTATION - AGREE WITH MEDICAL STUDENT NOTE EDWIGE DODGE Dec 14, 2022 07:28 CECILIO CHAVEZ MD Dec 14, 2022 23:14
[2022-12-14] MEDS: hydrALAZINE (APESOLINE) 20 MG/ML VIAL IV SCH ×3 (08:43→20:41)
[2022-12-14] MEDS ORDERED: DIATRIZOATE MEGLUM/SODIUM 37% 120 ML (GASTROGRAFIN) NG ONE (12:15)
[2022-12-14] MEDS: ONDANSETRON 4 MG/2 ML (SDV) Z0FRAN IV PRN (15:19)
[2022-12-15] MEDS: LACTATED RINGERS 1,000 ML IV SCH ×5 (00:46→22:36)
[2022-12-15] MEDS: morphine INJ 4 MG/ML 1 ML (VIAL/SYRINGE) IV PRN ×3 (02:58→20:08)
[2022-12-15 03:26] VITALS: BP 147/88
[2022-12-15] MEDS: PIPERACILLIN SODIUM/TAZOBACTAM 4.5 GM in NS (IVPB) 100 ML IV SCH ×3 (04:11→20:08)
--- NOTE | 2022-12-15 07:37 | Progress Note - Surgery ---
LAVONNE WATT 12/15/22 0737: Subjective Date Seen by a Provider: Dec 15, 2022 Time Seen by a Provider: 07:15 Subjective/Events-last exam Mr. Contreras is being followed for partial small bowel obstruction for which general surgery was consulted. This morning his pain in controlled with his morphine but overnight he reported 8/10 abdominal pain. He says when the medicine wears off he thinks the pain is the same as it was yesterday or maybe a little worse. He has had nausea while brushing his teeth or drinking the contrast for his SBFT yesterday. He denies vomiting. He thinks he is subjectively less bloated today than yesterday but he still feels a little more bloated than normal. He passed gas a couple times overnight but denies a bowel movement. He is continuing to get IVF and urinating well. He states that he feels pretty miserable and is hoping that things start getting better soon. Of note, no labs were drawn this morning. Review of Systems General: Chills; No Fatigue HEENT: No Head Aches, No Visual Changes Pulmonary: No Dyspnea, No Cough Cardiovascular: No: Chest Pain, Palpitations Gastrointestinal: Nausea, Abdominal Pain; No: Vomiting Genitourinary: No Dysuria, No Frequency Neurological: No: Weakness, Confusion Objective Exam Vital Signs Date Time Temp Pulse Resp B/P (MAP) Pulse Ox O2 Delivery O2 Flow Rate FiO2 12/15/22 03:26 36.8 87 20 147/88 (107) 96 Room Air 12/14/22 23:25 37.6 101 20 145/67 (93) 95 Room Air 12/14/22 20:00 Room Air 12/14/22 19:52 37.4 88 22 124/67 (86) 93 Room Air 12/14/22 15:37 37.7 90 22 120/72 (88) 96 Room Air 12/14/22 13:03 37.2 84 20 139/73 (95) 95 Room Air 12/14/22 13:01 37.2 85 20 139/73 (95) 95 Room Air 12/14/22 08:00 94 Room Air 12/14/22 07:40 36.8 73 20 123/74 (90) 94 Room Air I & O 12/15/22 07:00 Intake Total 0 ml Balance 0 ml Capillary Refill : Less Than 3 Seconds General Appearance: No Apparent Distress, WD/WN HEENT: PERRL/EOMI; No Scleral Icterus (L), No Scleral Icterus (R) Neck: Non Tender, Supple Respiratory: Chest Non Tender, Lungs Clear, Normal Breath Sounds, No Accessory Muscle Use, No Respiratory Distress Cardiovascular: Regular Rate, Rhythm, No Edema, No Murmur, Normal Peripheral Pulses Peripheral Pulses: 2+ Radial Pulses (R), 2+ Radial Pulses (L) Gastrointestinal: soft, distended (Mild); No guarding; tenderness (Tender to palpation diffusely. Increased tenderness in epigastrium, RLQ, and LLQ), hernia (small umbilical hernia), other (tympanic on percussion) Extremity: Non Tender, No Calf Tenderness, No Pedal Edema Neurologic/Psychiatric: Alert, Oriented x3, No Motor/Sensory Deficits, Normal Mood/Affect Skin: Normal Color, Warm/Dry Assessment/Plan Assessment/Plan Assessment/Plan Partial small bowel obstruction SBFT obtained yesterday showing contrast in colon about 6 hours after administration No reading as of the time of this note Likely nonadhesive d/t lack of previous abdominal surgeries Enteritis Possibly causing partial obstruction and slow transit time. Free fluid in abdomen Leukocytosis No labs this morning, labs from DEC 12 showed 11.5 Continue LR @ 150/hr. Continue Pip/tazo. Maintain NPO status. Would draw labs tomorrow. SBFT showed contrast making it to the colon around 6 hours after administration. This shows transit through the small intestine however it continues to be slow. No indication for decompression with NG tube or surgery at this time. No peritoneal signs, fever, tachycardia, or tachypnea. Patient is currently on day 2 of nonoperative management, would continue symptomatic control and expectant management at this time. HORACIO HARRISON DO 12/15/22 1111: Subjective Time Seen by a Provider: 10:59 Subjective/Events-last exam Pt seen and examined, still having a moderate amount of pain only helped with meds. Did have liquid BM last night, that did not change pain. He is asking to drink something or at least ice chips Review of Systems General: Chills; No Fatigue HEENT: No Head Aches, No Visual Changes Pulmonary: No Dyspnea, No Cough Cardiovascular: No: Chest Pain, Palpitations Gastrointestinal: Nausea, Abdominal Pain; No: Vomiting Genitourinary: No Dysuria, No Frequency Objective Exam General Appearance: No Apparent Distress, WD/WN HEENT: PERRL/EOMI; No Scleral Icterus (L), No Scleral Icterus (R) Neck: Supple Respiratory: Chest Non Tender, Lungs Clear, Normal Breath Sounds, No Accessory Muscle Use, No Respiratory Distress Cardiovascular: Regular Rate, Rhythm, No Murmur Gastrointestinal: soft; No distended (Mild), No guarding; tenderness (Tender to palpation diffusely. Increased tenderness in epigastrium, RLQ, and LLQ), hernia (small umbilical hernia), other (tympanic on percussion) Neurologic/Psychiatric: Alert, Oriented x3 Assessment/Plan Assessment/Plan Assessment/Plan Partial small bowel obstruction - nothing seen on SBFT SBFT obtained yesterday showing contrast in colon about 6 hours after administration Enteritis - ??possibly causing slow transit time. Free fluid in abdomen Leukocytosis -resolved Gastroparesis - will check a KUB today Continue LR @ 150/hr. Continue Pip/tazo. Maintain NPO status. Patient is currently on day 2 of nonoperative management, would continue symptomatic control and expectant management at this time. Supervisory-Addendum Brief Verification & Attestation Participated in pt care: history, MDM, physical Personally performed: exam, history, MDM, supervision of care Care discussed with: Medical Student Procedures: n/a Verification and Attestation of Medical Student E/M Service A medical student performed and documented this service. I then reviewed and verified all information documented by the medical student and made modifications to such information, when appropriate. I personally performed a physical exam, medical decision making and then discussed any differences between the notes and made revisions as necessary to create one note. Horacio Harrison , 12/15/22 , 11:11 LAVONNE WATT Dec 15, 2022 07:37 HORACIO HARRISON DO Dec 15, 2022 11:11
--- NOTE | 2022-12-15 08:23 | Progress Note ---
Subjective Subjective Date Seen by Provider: Dec 15, 2022 Time Seen by Provider: 08:04 Patient is being followed up for partial small bowel obstruction and enteritis. Today he is in visibly more discomfort than yesterday. He states his pain remains at a 7/10 but can get up to 8/10. He reports feeling more nauseous after brushing his teeth this morning, but he has not vomited. He states he has continued to pass gas but not much. States that he is frustrated that he is not improving. His reports that he is feeling weak and not able to walk much due to pain and not eating. Upon a second examination, patient was able to pass some liquid stools this AM. Small Bowel Follow Through from yesterday shows contrast passing through to colon, but with slow transit. Review of Systems General: No Fatigue HEENT: No Head Aches, No Visual Changes Pulmonary: No Dyspnea, No Cough Cardiovascular: No: Chest Pain, Palpitations Gastrointestinal: Nausea, Abdominal Pain, Constipation; No: Vomiting Genitourinary: No Dysuria, No Frequency Musculoskeletal: No: leg pain Neurological: No: Weakness, Confusion All Other Systems Reviewed All Other Systems Reviewed: Yes Objective Exam Vital Signs Vital Signs Date Time Temp Pulse Resp B/P (MAP) Pulse Ox O2 Delivery O2 Flow Rate FiO2 12/15/22 03:26 36.8 87 20 147/88 (107) 96 Room Air 12/14/22 23:25 37.6 101 20 145/67 (93) 95 Room Air 12/14/22 20:00 Room Air 12/14/22 19:52 37.4 88 22 124/67 (86) 93 Room Air 12/14/22 15:37 37.7 90 22 120/72 (88) 96 Room Air 12/14/22 13:03 37.2 84 20 139/73 (95) 95 Room Air 12/14/22 13:01 37.2 85 20 139/73 (95) 95 Room Air I & O 12/15/22 06:59 Intake Total 0 ml Balance 0 ml General Appearance: No Apparent Distress, WD/WN Eyes: Bilateral Eye PERRL, Bilateral Eye EOMI HEENT: PERRL/EOMI; No Scleral Icterus (L), No Scleral Icterus (R) Neck: Non Tender, Supple Respiratory: Chest Non Tender, Lungs Clear, Normal Breath Sounds, No Accessory Muscle Use, No Respiratory Distress Cardiovascular: Regular Rate, Rhythm, No Edema, No Murmur, Normal Peripheral Pulses Gastrointestinal: Abnormal Bowel Sounds (hyperactive in all 4 quadrants), Distended, Tenderness (diffuse to palpation) Extremity: Non Tender, No Calf Tenderness, No Pedal Edema Neurologic/Psychiatric: Alert, Oriented x3, No Motor/Sensory Deficits, Normal Mood/Affect Skin: Normal Color, Warm/Dry Assessment/Plan Assessment/Plan Admission Dx Assessment and Plan Partial Small Bowel Obstruction Surgery Consulted IVF Continue Bowel Rest, if there is improvement, will slowly advance diet as tolerated Pain Control - Morphine q 4 hours- consider increasing frequency Anti-emetics - Zofran If there is no improvement, surgery will consider NG decompression or diagnostic lap. Enteritis Zosyn (last dose 12/18) Leukocytosis improved from 20.8 on admission to 11.5 yestrday (no labs drawn today) likely due to recent steroid use Admission Dx Partial Small Bowel Obstruction Surgery Consulted IVF Bowel Rest Pain Control - Morphine q 4 hours- consider increasing frequency Anti-emetics - Zofran If there is no improvement, surgery will consider NG decompression or diagnostic lap. Enteritis Zosyn (last dose 12/18) Leukocytosis improved from 20.8 yesterday to 11.5 today likely due to recent steroid use Clinical Quality Measures Admission Status Admission Dx Partial Small Bowel Obstruction Surgery Consulted IVF Bowel Rest Pain Control - Morphine q 4 hours- consider increasing frequency Anti-emetics - Zofran If there is no improvement, surgery will consider NG decompression or diagnostic lap. Enteritis Zosyn (last dose 12/18) Leukocytosis improved from 20.8 yesterday to 11.5 today likely due to recent steroid use Supervisory-Addendum Brief Verification & Attestation Participated in pt care: history, MDM, physical Personally performed: exam, history, MDM, supervision of care Care discussed with: Medical Student Procedures: n/a Results interpretation: Verified all documentation Partial small bowel obstruction Enteritis Leukocytosis Chronic Hypertension Chronic back pain with peripheral neuropathy symptoms Partial small bowel obstruction with Enteritis and Leukocytosis -pt admitted to hospital - on IV fluids - bowel rest with ice chips - IV antibioticx - zosyn - monitor output - pt's white count improved on zosyn and bowel rest. Chronic Hypertension - added hydralazine IV Chronic back pain with peripheral neuropathy symptoms .DVT prophylsaxis wtih scd's and lovenox gi prophylasis with ppi EDWIGE DODGE Dec 15, 2022 08:23 CECILIO GREENBERG MD Dec 16, 2022 16:26
--- NOTE | 2022-12-15 08:27 | Diagnostic Imaging Report ---
Indication: Possible small bowel obstruction. A preliminary radiograph of the abdomen does show some moderate gaseous distention of the bowel loops in the upper central abdomen. A postcontrast administration serial radiographs of the abdomen were then obtained. There is contrast within stomach with prompt emptying into the small bowel. There is progression of contrast through the small bowel into the right colon. Contrast appears to reach the right colon approximately 4 hours. No complete obstruction is seen. No significant distention of small bowel is seen. Mucosal fold pattern is unremarkable. IMPRESSION: While there is some mild delay in passage of contrast to the colon, contrast does eventually reach the right colon at approximately 4 hours. There is no evidence of complete obstruction. Dictated by: Dictated on workstation # [id number]
[2022-12-15] MEDS: ONDANSETRON 4 MG/2 ML (SDV) Z0FRAN IV PRN ×2 (08:40→14:33)
[2022-12-15] MEDS: hydrALAZINE (APESOLINE) 20 MG/ML VIAL IV SCH ×3 (08:40→20:17)
[2022-12-15 08:57] VITALS: BP 151/81
[2022-12-15 09:20] LABS: HEMATOCRIT 37 % (40-54); HEMOGLOBIN 12.4 g/dL (13.3-17.7); MEAN CORPUSCULAR HEMOGLOBIN 29 pg (25-34); MEAN CORPUSCULAR HGB CONC 33 g/dL (32-36); MEAN CORPUSCULAR VOLUME 86 fL (80-99); MEAN PLATELET VOLUME 8.6 fL (9.0-12.2); PLATELET COUNT 133 10^3/uL (130-400)
[2022-12-15 09:39] LABS: ALBUMIN 3.4 GM/DL (3.2-4.5); BILIRUBIN,TOTAL 2.7 MG/DL (0.1-1.0); CALCIUM 8.5 MG/DL (8.5-10.1); CREATININE SERUM 0.86 MG/DL (0.60-1.30); POTASSIUM 3.6 MMOL/L (3.6-5.0); TOTAL PROTEIN 5.9 GM/DL (6.4-8.2)
[2022-12-15] MEDS ORDERED: SALIVA SUBSTITUTE 60 ML SPRAY(MOUTHKOTE) MM PRN (09:45)
[2022-12-15] MEDS: ENOXAPARIN 40 MG/0.4 ML (LOVENOX) SYR SC SCH (09:59)
[2022-12-15 11:42] VITALS: BP 128/68
[2022-12-15 15:49] VITALS: BP 125/70
--- NOTE | 2022-12-15 15:55 | Diagnostic Imaging Report ---
INDICATION: Gastroparesis. FINDINGS: There is contrast media throughout the colon to the rectal vault. The colon was nondilated. There is only minimal residual contrast in the distal ileum. No contrast extravasation. No air-containing dilated small bowel loop segment. IMPRESSION: No bowel obstruction. Antegrade advancement of previous oral contrast now throughout the colon and minimally within the distal small bowel. No colonic or small bowel dilatation evident. No abnormal fecal loading. Dictated by: Dictated on workstation # [id number]
[2022-12-15 20:00] VITALS: BP 141/71
[2022-12-15 23:25] VITALS: BP 130/64
[2022-12-16] MEDS: ONDANSETRON 4 MG/2 ML (SDV) Z0FRAN IV PRN (00:51)
[2022-12-16 03:35] VITALS: BP 134/75
[2022-12-16] MEDS: PIPERACILLIN SODIUM/TAZOBACTAM 4.5 GM in NS (IVPB) 100 ML IV SCH ×3 (04:10→20:06)
[2022-12-16 05:30] LABS: HEMATOCRIT 34 % (40-54); HEMOGLOBIN 11.2 g/dL (13.3-17.7); MEAN CORPUSCULAR HEMOGLOBIN 29 pg (25-34); MEAN CORPUSCULAR HGB CONC 33 g/dL (32-36); MEAN CORPUSCULAR VOLUME 86 fL (80-99); MEAN PLATELET VOLUME 8.8 fL (9.0-12.2); PLATELET COUNT 132 10^3/uL (130-400); WHITE BLOOD COUNT 9.2 10^3/uL (4.3-11.0)
[2022-12-16 05:32] LABS: POTASSIUM 3.4 MMOL/L (3.6-5.0)
[2022-12-16 05:35] LABS: TOTAL PROTEIN 5.1 GM/DL (6.4-8.2)
[2022-12-16 05:37] LABS: BILIRUBIN,TOTAL 1.8 MG/DL (0.1-1.0)
[2022-12-16 05:38] LABS: CREATININE SERUM 0.8 MG/DL (0.60-1.30)
[2022-12-16] MEDS: LACTATED RINGERS 1,000 ML IV SCH ×3 (05:39→19:29)
--- NOTE | 2022-12-16 07:31 | Progress Note ---
Subjective Subjective Date Seen by Provider: Dec 16, 2022 Time Seen by Provider: 07:45 Patient is being followed up for partial small bowel obstruction and enteritis. Today he reports he has had a couple of liquid BMs since yesterday. States he feels better overall. Still slightly distended with some nausea, but he states Zofran has helped with that. He rates his abdominal pain at a 6 out of 10. He has been trying to avoid taking pain meds so he does not slow down his bowels further. He denies any chest pain or shortness of breath at this time. KUB from yesterday shows no obstructions or free air. Review of Systems General: No Chills, No Fatigue HEENT: No Head Aches, No Visual Changes Pulmonary: No Dyspnea, No Cough Cardiovascular: No: Chest Pain, Palpitations Gastrointestinal: Nausea, Abdominal Pain; No: Vomiting Genitourinary: No Dysuria, No Frequency Musculoskeletal: No: leg pain Neurological: No: Weakness, Confusion All Other Systems Reviewed All Other Systems Reviewed: Yes Objective Exam Vital Signs Vital Signs Date Time Temp Pulse Resp B/P (MAP) Pulse Ox O2 Delivery O2 Flow Rate FiO2 12/16/22 03:35 37.1 76 16 134/75 (94) 94 Room Air 12/15/22 23:25 37.2 82 16 130/64 (86) 94 Room Air 12/15/22 20:00 37.8 82 18 141/71 (94) 95 Room Air 12/15/22 20:00 Room Air 12/15/22 15:49 37.0 86 18 125/70 (88) 95 Room Air 12/15/22 11:42 37.1 88 18 128/68 (88) 95 Room Air 12/15/22 08:57 37.2 77 19 151/81 (104) 94 12/15/22 08:15 Room Air I & O 12/16/22 07:00 Intake Total 0 ml Output Total 1100 ml Balance -1100 ml General Appearance: No Apparent Distress, WD/WN Eyes: Bilateral Eye PERRL, Bilateral Eye EOMI HEENT: PERRL/EOMI; No Scleral Icterus (L), No Scleral Icterus (R) Neck: Supple Respiratory: Chest Non Tender, Lungs Clear, Normal Breath Sounds, No Accessory Muscle Use, No Respiratory Distress Cardiovascular: Regular Rate, Rhythm, No Murmur Gastrointestinal: Normal Bowel Sounds, Distended (improved today), Tenderness (decreased today) Extremity: Non Tender, No Calf Tenderness, No Pedal Edema, Swelling (left arm due to IV ) Neurologic/Psychiatric: Alert, Oriented x3 Skin: Normal Color, Warm/Dry Results Lab Laboratory Tests 12/15/22 09:12: White Blood Count 10.0, Red Blood Count 4.35, Hemoglobin 12.4L, Hematocrit 37L, Mean Corpuscular Volume 86, Mean Corpuscular Hemoglobin 29, Mean Corpuscular Hemoglobin Concent 33, Red Cell Distribution Width 14.2, Platelet Count 133, Mean Platelet Volume 8.6L, Sodium Level 137, Potassium Level 3.6, Chloride Level 103, Carbon Dioxide Level 25, Anion Gap 9, Blood Urea Nitrogen 18, Creatinine 0.86, Estimat Glomerular Filtration Rate 94, BUN/Creatinine Ratio 21, Glucose Level 83, Calcium Level 8.5, Corrected Calcium 9.0, Magnesium Level 2.0, Total Bilirubin 2.7H, Aspartate Amino Transf (AST/SGOT) 28, Alanine Aminotransferase (ALT/SGPT) 23, Alkaline Phosphatase 38L, Total Protein 5.9L, Albumin 3.4 12/16/22 05:12: White Blood Count 9.2, Red Blood Count 3.91L, Hemoglobin 11.2L, Hematocrit 34L, Mean Corpuscular Volume 86, Mean Corpuscular Hemoglobin 29, Mean Corpuscular Hemoglobin Concent 33, Red Cell Distribution Width 14.0, Platelet Count 132, Mean Platelet Volume 8.8L, Sodium Level 137, Potassium Level 3.4L, Chloride Level 104, Carbon Dioxide Level 22, Anion Gap 11, Blood Urea Nitrogen 15, Creatinine 0.80, Estimat Glomerular Filtration Rate 96, BUN/Creatinine Ratio 19, Glucose Level 79, Calcium Level 8.0L, Corrected Calcium 8.8, Magnesium Level 2.0, Total Bilirubin 1.8H, Aspartate Amino Transf (AST/SGOT) 25, Alanine Aminotransferase (ALT/SGPT) 23, Alkaline Phosphatase 39L, Total Protein 5.1L, Albumin 3.0L Assessment/Plan Assessment/Plan Admission Dx Assessment and Plan Partial Small Bowel Obstruction Surgery Consulted IVF Continue Bowel Rest, if there is improvement, will slowly advance diet as tolerated Pain Control - Morphine q 4 hours if needed Anti-emetics - Zofran Enteritis Zosyn (last dose 12/18) Leukocytosis improved from 20.8 on admission to 9.2 likely due to recent steroid use Likely expect DC home in 1-2 days Admission Dx Clinical Quality Measures Admission Status Admission Dx Supervisory-Addendum Brief Verification & Attestation Participated in pt care: history, MDM, physical Personally performed: exam, history, MDM, supervision of care Care discussed with: Medical Student Procedures: n/a Results interpretation: Verified all documentation agree with student note see my documentation for additional details. Partial small bowel obstruction Enteritis Leukocytosis Chronic Hypertension Chronic back pain with peripheral neuropathy symptoms Partial small bowel obstruction with Enteritis and Leukocytosis - leukocytosis resolved now - on IV fluids, will need to consider decrease in rate if he is taking PO more effectively - bowel rest with ice chips (advancement per surgical team) - IV antibioticx - zosyn - monitor output (several bowel movements yesterda - 2 last night, 2 this morning) - pt's white count improved on zosyn and bowel rest. Chronic Hypertension - added hydralazine IV, once able to take PO, will add oral medications Hypokalemia - replenish with iv potassium this morning, check labs tomorrow Chronic back pain with peripheral neuropathy symptoms .DVT prophylsaxis wtih scd's and lovenox gi prophylasis with ppi EDWIGE DODGE Dec 16, 2022 07:31 CECILIO GREENBERG MD Dec 16, 2022 16:33
[2022-12-16 08:47] VITALS: BP 143/75
[2022-12-16] MEDS: hydrALAZINE (APESOLINE) 20 MG/ML VIAL IV SCH ×3 (09:21→20:06)
[2022-12-16] MEDS: POTASSIUM CL 10MEQ/50ML IVPB 50 ML IV SCH ×2 (09:22→10:29)
[2022-12-16] MEDS: ENOXAPARIN 40 MG/0.4 ML (LOVENOX) SYR SC SCH (09:22)
--- NOTE | 2022-12-16 11:03 | Progress Note - Surgery ---
LAVONNE WATT 12/16/22 1103: Subjective Date Seen by a Provider: Dec 16, 2022 Time Seen by a Provider: 10:05 Subjective/Events-last exam Mr. Contreras is being followed for partial small bowel obstruction for which general surgery was consulted. This morning he reports he is feeling quite a bit better than yesterday. He had 4 bowel movements between yesterday afternoon and this morning. Says they were loose and liquid. Feels subjectively less distended and bloated today with decreased abdominal pain. He is tolerating ice chips without nausea or vomiting apart from a brief episode of nausea overnight. KUB yesterday showed decreased contrast in his stomach from previous film. Review of Systems General: Chills; No Fatigue HEENT: No Head Aches, No Visual Changes Pulmonary: No Dyspnea, No Cough Cardiovascular: No: Chest Pain, Palpitations Gastrointestinal: Nausea, Abdominal Pain; No: Vomiting Neurological: No: Weakness, Confusion Objective Exam Vital Signs Date Time Temp Pulse Resp B/P (MAP) Pulse Ox O2 Delivery O2 Flow Rate FiO2 12/16/22 08:47 37.1 66 18 143/75 (97) 95 Room Air 12/16/22 03:35 37.1 76 16 134/75 (94) 94 Room Air 12/15/22 23:25 37.2 82 16 130/64 (86) 94 Room Air 12/15/22 20:00 37.8 82 18 141/71 (94) 95 Room Air 12/15/22 20:00 Room Air 12/15/22 15:49 37.0 86 18 125/70 (88) 95 Room Air 12/15/22 11:42 37.1 88 18 128/68 (88) 95 Room Air I & O 12/16/22 07:00 Intake Total 0 ml Output Total 1100 ml Balance -1100 ml Capillary Refill : Less Than 3 Seconds General Appearance: No Apparent Distress, WD/WN HEENT: PERRL/EOMI; No Scleral Icterus (L), No Scleral Icterus (R) Neck: Non Tender, Supple Respiratory: Chest Non Tender, Lungs Clear, Normal Breath Sounds, No Accessory Muscle Use, No Respiratory Distress Cardiovascular: Regular Rate, Rhythm, No Edema, No Murmur, Normal Peripheral Pulses Peripheral Pulses: 2+ Radial Pulses (R), 2+ Radial Pulses (L) Gastrointestinal: soft; No distended, No guarding; tenderness (Tender to palpation in LLQ this morning, decreased from yesterday's exam), hernia (small umbilical hernia) Extremity: Non Tender, No Calf Tenderness, No Pedal Edema, Swelling (left arm due to IV ) Neurologic/Psychiatric: Alert, Oriented x3 Skin: Normal Color, Warm/Dry Lymphatic: No Adenopathy (Head and neck) Results Lab Laboratory Tests 12/16/22 05:12: White Blood Count 9.2, Red Blood Count 3.91L, Hemoglobin 11.2L, Hematocrit 34L, Mean Corpuscular Volume 86, Mean Corpuscular Hemoglobin 29, Mean Corpuscular Hemoglobin Concent 33, Red Cell Distribution Width 14.0, Platelet Count 132, Mean Platelet Volume 8.8L, Sodium Level 137, Potassium Level 3.4L, Chloride Level 104, Carbon Dioxide Level 22, Anion Gap 11, Blood Urea Nitrogen 15, Creatinine 0.80, Estimat Glomerular Filtration Rate 96, BUN/Creatinine Ratio 19, Glucose Level 79, Calcium Level 8.0L, Corrected Calcium 8.8, Magnesium Level 2.0, Total Bilirubin 1.8H, Aspartate Amino Transf (AST/SGOT) 25, Alanine Aminotr ansferase (ALT/SGPT) 23, Alkaline Phosphatase 39L, Total Protein 5.1L, Albumin 3.0L Assessment/Plan Assessment/Plan Assessment/Plan Partial small bowel obstruction SBFT obtained DEC 12 showing contrast in colon about 6 hours after administration. This shows transit through the small intestine however it continues to be slow. Likely nonadhesive d/t lack of previous abdominal surgeries KUB obtained yesterday showed contrast throughout colon and decreased contrast in stomach Enteritis Free fluid in abdomen Leukocytosis Resolved, down to 9.2 this morning, trending down Continue LR @ 150/hr. Continue Pip/tazo. Tolerating ice chips. Advance to clear liquid diet today No indication for decompression with NG tube or surgery at this time. No peritoneal signs, fever, tachycardia, or tachypnea. Patient is currently on day 3 of nonoperative management, would continue symptomatic control and expectant management at this time. Patient is progressing well and will likely be ready for discharge soon if he tolerates PO intake. CARTER CERVANTES DO 12/16/22 1456: Subjective Subjective/Events-last exam Having bowel function. No significant abdominal pain. NPO. Not having any nausea or vomiting. Denies fever sweats chills shortness of breath or chest pain. Objective Exam General Appearance: No Apparent Distress, WD/WN HEENT: PERRL/EOMI, Normal ENT Inspection Neck: Non Tender, Supple Respiratory: Chest Non Tender, No Accessory Muscle Use, No Respiratory Distress Cardiovascular: Regular Rate, Rhythm, No JVD Gastrointestinal: soft, tenderness (no significant tenderness), hernia (small umbilical hernia) Extremity: Non Tender, No Calf Tenderness Neurologic/Psychiatric: Alert, Oriented x3 Skin: Normal Color, Warm/Dry Lymphatic: No Adenopathy (Head and neck) Assessment/Plan Assessment/Plan Assessment/Plan psbo enteritis leukocytosis having bowel function start on clears wbc normal if tolerates clear, likely advance tomorrow and home soon. Supervisory-Addendum Brief Verification & Attestation Participated in pt care: history, MDM, physical Personally performed: exam, history, MDM, supervision of care Care discussed with: Medical Student Procedures: n/a Results interpretation: Verified all documentation Verification and Attestation of Medical Student E/M Service A medical student performed and documented this service in my presence. I reviewed and verified all information documented by the medical student and made modifications to such information, when appropriate. I personally performed the physical exam and medical decision making. Carter Cervantes, Dec 16, 2022,14:56 LAVONNE WATT Dec 16, 2022 11:03 CARTER CERVANTES DO Dec 16, 2022 14:56
[2022-12-16 12:31] VITALS: BP 140/70
[2022-12-16] MEDS ORDERED: KETOROLAC 30 MG/ML VIAL IVP ONE (14:15)
[2022-12-16] MEDS ORDERED: KETOROLAC 15 MG/ML VIAL IVP PRN (14:15)
[2022-12-16] MEDS: KETOROLAC 30 MG/ML VIAL IVP NR (14:35)
[2022-12-16 15:36] VITALS: BP 116/53
[2022-12-16] MEDS: TAMSULOSIN 0.4 MG (FLOMAX) CAP PO SCH (17:03)
[2022-12-16 19:36] VITALS: BP 134/73
[2022-12-16] MEDS ORDERED: GABAPENTIN 300 MG (NEURONTIN) CAP PO SCH (21:00)
[2022-12-16 23:32] VITALS: BP 113/56
[2022-12-17] MEDS: LACTATED RINGERS 1,000 ML IV SCH ×2 (00:42→07:30)
[2022-12-17 03:35] VITALS: BP 112/65
[2022-12-17] MEDS: PIPERACILLIN SODIUM/TAZOBACTAM 4.5 GM in NS (IVPB) 100 ML IV SCH ×2 (05:19→13:15)
[2022-12-17 05:35] LABS: HEMATOCRIT 32 % (40-54); HEMOGLOBIN 10.8 g/dL (13.3-17.7); MEAN CORPUSCULAR HEMOGLOBIN 29 pg (25-34); MEAN CORPUSCULAR HGB CONC 34 g/dL (32-36); MEAN CORPUSCULAR VOLUME 86 fL (80-99); MEAN PLATELET VOLUME 8.8 fL (9.0-12.2); PLATELET COUNT 119 10^3/uL (130-400); WHITE BLOOD COUNT 5.3 10^3/uL (4.3-11.0)
[2022-12-17 05:47] LABS: ALBUMIN 2.8 GM/DL (3.2-4.5)
[2022-12-17 05:48] LABS: POTASSIUM 3.7 MMOL/L (3.6-5.0)
[2022-12-17 05:49] LABS: CALCIUM 7.9 MG/DL (8.5-10.1)
[2022-12-17 05:50] LABS: TOTAL PROTEIN 4.8 GM/DL (6.4-8.2)
[2022-12-17 05:52] LABS: BILIRUBIN,TOTAL 1.6 MG/DL (0.1-1.0)
[2022-12-17 05:54] LABS: CREATININE SERUM 0.81 MG/DL (0.60-1.30)
[2022-12-17 05:57] LABS: MAGNESIUM 2.1 MG/DL (1.6-2.4)
--- NOTE | 2022-12-17 08:44 | Progress Note - Hospitalist ---
Subjective HPI/CC On Admission Date Seen by Provider: Dec 17, 2022 Subjective/Events-last exam Patient reports feeling much better today. He would like to advance diet. Pain is been well controlled. Had a bowel movement this morning. Objective Exam Vital Signs Vital Signs Date Time Temp Pulse Resp B/P (MAP) Pulse Ox O2 Delivery O2 Flow Rate FiO2 12/17/22 03:35 36.9 72 18 112/65 (81) 93 Room Air Capillary Refill : Less Than 3 Seconds General Appearance: No Apparent Distress, WD/WN Respiratory: Lungs Clear, No Respiratory Distress Cardiovascular: Regular Rate, Rhythm, No Murmur Gastrointestinal: Normal Bowel Sounds (but on slower side), Non Tender, Soft Neurologic/Psychiatric: Alert, Oriented x3 Results/Procedures Lab Laboratory Tests 12/17/22 05:26 Patient resulted labs reviewed. Assessment/Plan Assessment and Plan Assess & Plan/Chief Complaint Partial small bowel obstruction with Enteritis and Leukocytosis - on IV fluids, DC rate due to increasing oral intake - Advanced to soft diet as he is having bowel movements - IV antibioticx - zosyn - BM this AM Chronic Hypertension - BP well controlled, resume home meds if able to tolerate diet Hypokalemia - improved this AM Chronic back pain with peripheral neuropathy symptoms .DVT prophylsaxis wtih scd's and lovenox gi prophylasis with ppi IRINA QUAN MD Dec 17, 2022 8:44 am
[2022-12-17 08:51] VITALS: BP 139/77
[2022-12-17] MEDS: ENOXAPARIN 40 MG/0.4 ML (LOVENOX) SYR SC SCH (09:08)
[2022-12-17] MEDS: hydrALAZINE (APESOLINE) 20 MG/ML VIAL IV SCH ×2 (09:08→13:16)
--- NOTE | 2022-12-17 10:48 | Progress Note ---
Subjective Date Seen by a Provider: Dec 17, 2022 Time Seen by a Provider: 10:30 Subjective/Events-last exam Patient seen with Dr. Adams. Patient reports doing well today. Had soft food this morning and did well with no nausea or vomiting. Reports some lower mid- abdomen tenderness but no pain. Having BMs and passing flatus. Ambulating well. Objective Exam Vital Signs Date Time Temp Pulse Resp B/P (MAP) Pulse Ox O2 Delivery O2 Flow Rate FiO2 12/17/22 08:51 36.9 68 18 139/77 (97) 96 Room Air 12/17/22 03:35 36.9 72 18 112/65 (81) 93 Room Air 12/16/22 23:32 37.2 69 18 113/56 (75) 93 Room Air 12/16/22 19:36 37.4 75 18 134/73 (93) 94 Room Air 12/16/22 19:30 Room Air 12/16/22 15:36 37.6 93 18 116/53 (74) 96 Room Air 12/16/22 12:31 37.3 65 19 140/70 (93) 95 Room Air I & O 12/17/22 07:00 Intake Total 1922 ml Output Total 400 ml Balance 1522 ml Capillary Refill : Less Than 3 Seconds General Appearance: No Apparent Distress, WD/WN Neck: Normal Inspection, Supple Respiratory: No Accessory Muscle Use, No Respiratory Distress Gastrointestinal: normal bowel sounds, non tender, soft Extremity: Normal Inspection, Normal Range of Motion Neurologic/Psychiatric: Alert, Oriented x3 Skin: Normal Color, Warm/Dry Results Lab Laboratory Tests 12/17/22 05:26: White Blood Count 5.3, Red Blood Count 3.75L, Hemoglobin 10.8L, Hematocrit 32L, Mean Corpuscular Volume 86, Mean Corpuscular Hemoglobin 29, Mean Corpuscular Hemoglobin Concent 34, Red Cell Distribution Width 13.8, Platelet Count 119L, Mean Platelet Volume 8.8L, Sodium Level 136, Potassium Level 3.7, Chloride Level 105, Carbon Dioxide Level 24, Anion Gap 7, Blood Urea Nitrogen 12, Creatinine 0.81, Estimat Glomerular Filtration Rate 95, BUN/Creatinine Ratio 15, Glucose Level 92, Calcium Level 7.9L, Corrected Calcium 8.9, Magnesium Level 2.1, Total Bilirubin 1.6H, Aspartate Amino Transf (AST/SGOT) 21, Alanine Aminotransferase (ALT/SGPT) 21, Alkaline Phosphatase 29L, Total Protein 4.8L, Albumin 2.8L Assessment/Plan Assessment/Plan Assess & Plan/Chief Complaint A 67 year old male with a PSBO, enteritis, leukocytosis VSS WBC 5.3 having bowel function Tolerating diet OK to DC home from surgical standpoint. KURT ALONZO EMAIL PRODUCER Dec 17, 2022 10:48
[2022-12-17 12:31] VITALS: BP 146/82
[2022-12-17] MEDS ORDERED: NON-FORMULARY MEDICATION 1 EA EA (Bethanechol Chloride 50 MG) PO SCH (13:00)
[2022-12-17] MEDS ORDERED: BETHANECHOL 25 MG (URECHOLINE) TAB PO SCH (13:00)
[2022-12-17] MEDS ORDERED: AMOX1TAB12 PO (13:48)
--- NOTE | 2022-12-17 13:51 | Discharge Inst-Simple/Standard ---
Discharge Inst-Standard Discharge Medications New, Converted or Re-Newed RX: Transmitted to Pharmacy Patient Instructions/Follow Up Plan of Care/Instructions/FU: Please continue to take your medications as written. Please follow up with Dr Chavez to follow up this hospital stay. Activity as Tolerated: Yes Discharge Diet: Soft Diet Return to The Hospital For: Abdominal pain, no bowel movement or gas for 24 hours, nausea, vomiting, fever, chest pain, shortness of breath. IRINA QUAN MD Dec 17, 2022 13:51
[2022-12-17 16:32] VITALS: BP 119/64
[2022-12-17] MEDS: TAMSULOSIN 0.4 MG (FLOMAX) CAP PO SCH (16:59)
[2022-12-17 17:06] VITALS: BP 119/64
== END 2022-12-17 17:28 | disposition home or self-care (01) | DRG 390 ==
LOC: EDUNIT# 11:32 → ER 11:34 → 4TH 14:26 → OBSVTOIN 14:47
PROVIDERS: ADMIT Family Medicine; ATTEND Family Medicine
DX: K56.600 Partial intestinal obstruction, unspecified as to cause (principal); K52.9 Noninfective gastroenteritis and colitis, unspecified; N31.9 Neuromuscular dysfunction of bladder, unspecified; N40.0 Benign prostatic hyperplasia without lower urinary tract symptoms; I10 Essential (primary) hypertension; I25.10 Atherosclerotic heart disease of native coronary artery without angina pectoris; E78.00 Pure hypercholesterolemia, unspecified; G62.9 Polyneuropathy, unspecified; K31.84 Gastroparesis; E87.6 Hypokalemia; H54.7 Unspecified visual loss; Z95.5 Presence of coronary angioplasty implant and graft; Z79.82 Long term (current) use of aspirin
CPT/HCPCS: 36415; 74018; 74177; 74250; 80048; 80053; 81000; 83735; 85007; 85025; 85027

== ENCOUNTER → 2022-12-13 | Outpatient (CLI) | payer MEDICARE ==
[~2022-12-13] MED LIST: ASPI-1238 PO; ATOR40TA70 PO; BETH50TA3 PO; CHOL20003 PO; FISH1CAP15 PO; GABA300C PO; GLUC-219 PO; LISI10TA25 PO; MELA1TAB20 PO; MTP25TSR PO; TMSL.4C PO
--- NOTE | 2022-12-13 11:49 | Diagnostic Imaging Report ---
INDICATION: Constipation. FINDINGS: There is elevated fecal load in the colon but no abnormal rectosigmoidal loading. Some few left juan jose-abdominal small bowel loops, mildly ectatic. No pneumatosis or free gas evident on this supine series. IMPRESSION: Aowqtiqi-[id number]-[id number] colonic constipation without rectal impaction. There are few atelectatic air-containing left abdominal small bowel loops but no overtly obstructive features. Dictated by: Dictated on workstation # [id number]
== END ==
LOC: RAD 11:01
PROVIDERS: ATTEND Nurse Practitioner Family
DX: K59.00 Constipation, unspecified (principal)
CPT/HCPCS: 74018

== ENCOUNTER → 2023-01-03 | Outpatient (CLI) | payer MEDICARE ==
[~2023-01-03] MED LIST changes: +AMOX1TAB12 PO
--- NOTE | 2023-01-03 10:18 | Diagnostic Imaging Report ---
PROCEDURE: CT abdomen and pelvis without contrast. TECHNIQUE: Multiple contiguous axial images were obtained through the abdomen and pelvis without the use of intravenous contrast. Auto Exposure Controls were utilized during the CT exam to meet ALARA standards for radiation dose reduction. INDICATION: Infection, follow-up. Correlation is made with prior CT from 12/13/2022. FINDINGS: The lung bases are clear. The liver and gallbladder are unremarkable. The pancreas and spleen are unremarkable. No adrenal mass is detected. No renal calculi or hydronephrosis is detected. Aorta is nonaneurysmal. Moderate stool load persists. The inflammatory changes involving the distal small bowel in the right hemiabdomen appears significantly improved. No significant small bowel distention is seen on today's study. No wall thickening is identified. No mesenteric edema or congestion is identified. Appendix appears unremarkable. The free fluid within the abdomen and pelvis has resolved. The bladder and prostate are unremarkable. IMPRESSION: 1. Significant overall improvement in the appearance of the abdomen and pelvis when compared with prior exam from 12/13/2022. Inflammatory changes in the right abdomen involving small bowel loops has resolved. There has been clearing of abdominal and pelvic ascites. Patient continues to have a moderate stool load. Dictated by: Dictated on workstation # [id number]
== END ==
LOC: RAD 09:17
PROVIDERS: ATTEND Family Medicine
DX: R10.9 Unspecified abdominal pain (principal); K52.9 Noninfective gastroenteritis and colitis, unspecified
CPT/HCPCS: 74176

== ENCOUNTER 2023-09-29 09:57 | Outpatient (CLI) | payer MEDICARE ==
[~2023-09-29] VITALS: Ht 182.9 cm; Wt 81.6 kg
[~2023-09-29 09:57] MED LIST changes: -MELA1TAB20 PO; +MELA1TAB72 PO
[2023-09-29] MEDS ORDERED: NAPR-915 PO (12:44)
== END 2023-09-29 14:00 | disposition home or self-care (01) ==
LOC: PREOP 09:57
PROVIDERS: ATTEND Specialist
DX: Z01.818 Encounter for other preprocedural examination (principal)

== ENCOUNTER 2023-10-06 06:23 | Day surgery (SDC) | payer MEDICARE ==
[~2023-10-06] VITALS: Ht 182.8 cm; Wt 81.6 kg
[~2023-10-06 06:23] MED LIST changes: +NAPR-915 PO
[2023-10-06] MEDS: TETRACAINE 0.5% OPHTH SOLN 5 ML BTL OU PRN ×4 (06:44→07:08)
[2023-10-06] MEDS ORDERED: TIMOLOL 0.5% (CATARACTS) 0.3 ML BTL OU PRN (06:45)
[2023-10-06] MEDS ORDERED: POVIDONE IODINE OPHTH SOLN 5% 30 ML OP ONE (06:45)
[2023-10-06] MEDS ORDERED: LIDOCAINE PF 1% 2 ML VIAL IR PRN (06:45)
[2023-10-06] MEDS ORDERED: MOXIFLOXACIN OPHTH SOLN 5 MG/ML 0.5 ML SYRINGE OP ONE (06:45)
[2023-10-06] MEDS: TROPICAMIDE 1% OPH SOLN (MYDRIACYL) 15 ML BTL OP SCH ×3 (06:53→07:08)
[2023-10-06] MEDS: PHENYLEPHRINE 10% OPHTH SOLN 5 ML BTL OU SCH ×3 (06:53→07:08)
[2023-10-06 07:03] VITALS: BP 144/80
--- NOTE | 2023-10-06 07:15 | Ophthalmologist Pre-Op Note ---
Pre-Operative Progress Note H&P Reviewed The H&P was reviewed, patient examined and no changes noted. Date H&P Reviewed: Oct 06, 2023 Time H&P Reviewed: 07:15 Pre-Op Dx Cataract, Right Eye MECCA CHINO MD Oct 06, 2023 07:15
--- NOTE | 2023-10-06 08:01 | Ophthalmologist Pre-Op Note ---
Pre-Operative Progress Note H&P Reviewed The H&P was reviewed, patient examined and no changes noted. Date H&P Reviewed: Oct 06, 2023 Time H&P Reviewed: 08:00 Pre-Op Dx Cataract, Left Eye MECCA CHINO MD Oct 06, 2023 08:01
[2023-10-06] MEDS ORDERED: MIDAZOLAM INJ 2 MG/2 ML VIAL ONE (08:03)
--- NOTE | 2023-10-06 08:21 | Ophthalmology Operative Report ---
Cataract removal/placement IOL PREOPERATIVE DIAGNOSIS: Cataract Left Eye POSTOPERATIVE DIAGNOSIS: Cataract Left Eye PROCEDURE: Cataract removal and placement of posterior chamber implant, left eye SURGEON: Mukul Chino ANESTHESIA: Topical with sedation COMPLICATIONS: None ESTIMATED BLOOD LOSS: Minimal DESCRIPTION OF PROCEDURE: After proper informed consent was obtained, the patient, a 67 male, was taken to the Operating Room and the left eye was anesthetized with tetracaine. The left eye was then prepped and draped in the usual manner. A wire lid speculum was placed. A paracentesis was made at the left hand position. Preservative free lidocaine was injected into the anterior chamber followed by viscoelastic. A clear corneal incision was made in the temporal position. A capsulorrhexis was preformed and the central nuclear and cortical material were removed. The posterior capsule was polished and an Trevon 19.5 CNA0T0 was placed into the capsular bag. The residual viscoelastic was aspirated and balanced saline solution was injected into the anterior chamber. Moxifloxacin was injected into the anterior chamber. The wound was checked and found to be water tight. The patient tolerated the procedure well without complications. MUKUL CHINO MD Oct 06, 2023 08:21
[2023-10-06 08:30] VITALS: BP 139/86
--- NOTE | 2023-10-06 14:22 | Anesthesia-General Post-Op ---
MAC Patient Condition Mental Status/LOC: Same as Preop Cardiovascular: Satisfactory Nausea/Vomiting: Absent Respiratory: Satisfactory Pain: Controlled Complications: Absent Post Op Complications Complications None Follow Up Care/Instructions Patient Instructions None needed. Anesthesiology Discharge Order Discharge Order Patient is doing well, no complaints, stable vital signs, no apparent adverse anesthesia problems. No complications reported per nursing. NELSON WEST CRNA Oct 06, 2023 14:22
== END 2023-10-06 08:33 | disposition home or self-care (01) ==
LOC: SDC 06:23
PROVIDERS: ATTEND Specialist
DX: H25.9 Unspecified age-related cataract (principal)
CPT/HCPCS: 66984; V2632

== ENCOUNTER 2023-10-24 10:16 | Outpatient (CLI) | payer MEDICARE ==
[~2023-10-24] VITALS: Ht 183 cm; Wt 78.0 kg
== END 2023-10-24 12:58 | disposition home or self-care (01) ==
LOC: PREOP 10:16
PROVIDERS: ATTEND Specialist
DX: Z01.818 Encounter for other preprocedural examination (principal)

== ENCOUNTER 2023-10-27 11:59 | Day surgery (SDC) | payer MEDICARE ==
[~2023-10-27] VITALS: Ht 183 cm; Wt 78.0 kg
[2023-10-27 12:00] VITALS: BP 144/100
[2023-10-27] MEDS ORDERED: MOXIFLOXACIN OPHTH SOLN 5 MG/ML 0.5 ML SYRINGE OP ONE (12:15)
[2023-10-27] MEDS ORDERED: POVIDONE IODINE OPHTH SOLN 5% 30 ML OP ONE (12:15)
[2023-10-27] MEDS ORDERED: LIDOCAINE PF 1% 2 ML VIAL IR PRN (12:15)
[2023-10-27] MEDS ORDERED: TIMOLOL 0.5% (CATARACTS) 0.3 ML BTL OU PRN (12:15)
[2023-10-27] MEDS: TETRACAINE 0.5% OPHTH SOLN 5 ML BTL OU PRN ×4 (12:19→12:36)
[2023-10-27] MEDS: PHENYLEPHRINE 10% OPHTH SOLN 5 ML BTL OU SCH ×3 (12:27→12:37)
[2023-10-27] MEDS: TROPICAMIDE 1% OPH SOLN (MYDRIACYL) 15 ML BTL OP SCH ×3 (12:28→12:37)
--- NOTE | 2023-10-27 12:36 | Ophthalmologist Pre-Op Note ---
Pre-Operative Progress Note H&P Reviewed The H&P was reviewed, patient examined and no changes noted. Date H&P Reviewed: Oct 27, 2023 Time H&P Reviewed: 12:36 Pre-Op Dx Cataract, Right Eye MECCA CHINO MD Oct 27, 2023 12:36
[2023-10-27] MEDS ORDERED: MIDAZOLAM INJ 2 MG/2 ML VIAL ONE (12:40)
--- NOTE | 2023-10-27 12:55 | Ophthalmology Operative Report ---
Cataract removal/placement IOL PREOPERATIVE DIAGNOSIS: Cataract Right Eye POSTOPERATIVE DIAGNOSIS: Cataract Right Eye PROCEDURE: Cataract removal and placement of posterior chamber implant, right eye SURGEON: Mukul Chino ANESTHESIA: Topical with sedation COMPLICATIONS: None ESTIMATED BLOOD LOSS: Minimal DESCRIPTION OF PROCEDURE: After proper informed consent was obtained, the patient, a 68 male, was taken to the Operating Room and the right eye was anesthetized with tetracaine. The right eye was then prepped and draped in the usual manner. A wire lid speculum was placed. A paracentesis was made at the left hand position. Preservative free lidocaine was injected into the anterior chamber followed by viscoelastic. A clear corneal incision was made in the temporal position. A capsulorrhexis was preformed and the central nuclear and cortical material were removed. The posterior capsule was polished and Trevon 18.5 CNA0T0 IOL was placed into the capsular bag. The residual viscoelastic was aspirated and balanced saline solution was injected into the anterior chamber. Moxifloxacin was injected into the anterior chamber. The wound was checked and found to be water tight. The patient tolerated the procedure well without complications. MUKUL CHINO MD Oct 27, 2023 12:55
[2023-10-27 13:01] VITALS: BP 147/88
--- NOTE | 2023-10-27 13:01 | Anesthesia-General Post-Op ---
MAC Post Op Complications Complications None Follow Up Care/Instructions Patient Instructions None needed. Anesthesiology Discharge Order Discharge Order Patient was doing well after the procedure with no complaints, stable vital signs, no apparent adverse anesthesia problems. No complications reported per nursing. DIXON ARRIOLA DO Oct 27, 2023 13:00
== END 2023-10-27 13:03 | disposition home or self-care (01) ==
LOC: SDC 11:59
PROVIDERS: ATTEND Specialist
DX: H25.9 Unspecified age-related cataract (principal); Z95.5 Presence of coronary angioplasty implant and graft
CPT/HCPCS: 66984; V2632